=== PATIENT | male | born 1950 | race Caucasian/White ===

== ENCOUNTER 2021-02-21 08:44 | Outpatient (CLI) | payer MEDICARE, OTHER ==
[2021-02-21 09:05] LABS: BASOPHILS # (AUTO) 0.1 10^3/uL (0.0-0.1); BASOPHILS % (AUTO) 1.1 %; EOSINOPHILS # (AUTO) 0.3 10^3/uL (0.0-0.7); EOSINOPHILS % (AUTO) 4.9 %; HGB - HEMOGLOBIN 13.9 g/dL (14.0-18.0); LYMPHOCYTES # (AUTO) 2.4 10^3/uL (1.5-3.5); LYMPHOCYTES % (AUTO) 37.5 %; MEAN CORPUSCULAR HEMOGLOBIN 31.2 pg (27.0-31.0); MEAN CORPUSCULAR HGB CONC 33.9 g/dL (32.0-36.0); MEAN CORPUSCULAR VOLUME 92.1 fL (80.0-94.0); MEAN PLATELET VOLUME 8.8 fL (7.4-11.4); MONOCYTES # (AUTO) 0.7 10^3/uL (0.0-1.0); MONOCYTES % (AUTO) 10.3 %; NEUTROPHILS # (AUTO) 2.9 10^3/uL (1.5-6.6); PLT - PLATELET COUNT 190 10^3/uL (130-450); RED BLOOD COUNT 4.45 10^6/uL (4.70-6.10); RED CELL DISTRIBUTION WIDTH 12.6 % (12.0-15.0); WHITE BLOOD COUNT 6.3 x10^3/uL (4.8-10.8)
[2021-02-21 09:23] LABS: ALBUMIN 3.9 g/dL (3.2-5.5); ALBUMIN/GLOBULIN RATIO 1.4 (1.0-2.2); ALKALINE PHOSPHATASE 100 IU/L (42-121); ALT ALANINE AMINOTRANSFERASE 20 IU/L (10-60); AST ASPARTATE AMINOTRANSFERASE 24 IU/L (10-42); BILIRUBIN,TOTAL 1.4 mg/dL (0.2-1.0); BUN - BLOOD UREA NITROGEN 17 mg/dL (6-20); CALCIUM 9.1 mg/dL (8.5-10.3); CARBON DIOXIDE - CO2 29 mmol/L (21-32); CHLORIDE 103 mmol/L (101-111); CHOL/HDL RATIO 3.3 (<5.0); CHOLESTEROL 121 mg/dL; GFR - MDRD 73 (>89); GLUCOSE 101 mg/dL (70-100); HDL CHOLESTEROL 37 mg/dL; LDL CHOLESTEROL,CALCULATED 68 mg/dL; LDL/HDL RATIO 1.8 (<3.6); POTASSIUM 4.1 mmol/L (3.5-5.0); SODIUM 139 mmol/L (135-145); TOTAL PROTEIN 6.6 g/dL (6.7-8.2); TRIGLYCERIDES 78 mg/dL; VLDL CHOLESTEROL 16 mg/dL
== END 2021-02-21 08:45 | disposition home or self-care (01) ==
LOC: LAB 08:44
PROVIDERS: ATTEND Internal Medicine
DX: I10 Essential (primary) hypertension (principal); E78.5 Hyperlipidemia, unspecified; Z12.5 Encounter for screening for malignant neoplasm of prostate
CPT/HCPCS: 36415; 80053; 80061; 83721; 84153; 85025

== ENCOUNTER 2021-02-26 11:50 | Outpatient (CLI) | payer MEDICARE ==
--- NOTE | 2021-02-26 12:54 | XRAY Report ---
PROCEDURE: Cervical Spine Complete INDICATIONS: LUMBAGO,CERVICALGIA TECHNIQUE: 5 view(s) of the cervical spine were acquired. COMPARISON: None. FINDINGS: Bones: No fractures or dislocations to the C7-T1 level. Straightening of normal cervical lordosis is seen. Degenerative endplate changes and bilateral facet hypertrophic changes are noted throughout ce rvical spine. Minimal anterolisthesis of C3 on C4 and C5 on C6 is seen. The lateral masses of C1 appe ar intact on the odontoid view. No suspicious bony lesions. Soft tissues: No prevertebral soft tissue swelling. Lateral flexion and extension: There is decreased range of motion with preserved cervical spine align ment. IMPRESSION: Minimal anterolisthesis at C3-4 and C5-6 levels. No acute compression fracture. Degenera tive disc disease throughout cervical spine. Decreased range of motion on lateral flexion and extensi on views with preserved cervical spine alignment. Reviewed by: Grady Robertson MD on 02/26/2021 12:53 PM PDT Approved by: Grady Robertson MD on 02/26/2021 12:53 PM PDT Station ID: [id number]
--- NOTE | 2021-02-26 12:58 | XRAY Report ---
PROCEDURE: Lumbar Spine 2 View INDICATIONS: LUMBAGO,CERVICALGIA TECHNIQUE: 4 views of the lumbar spine were acquired. COMPARISON: None. FINDINGS: Bones: 5 [id number]-[id number] vertebrae are present. There is prior posterior fusion of spinous processes at L3-L5 levels. No gross hardware loosening or failure. Grade 1 anterolisthesis of L4 on L5 is seen measures 6 mm in distance. Degenerative endplate changes and bilateral facet arthrosis throughout lum bar spine is seen. No acute vertebral body compression fractures. No suspicious bony lesions. Soft tissues: Overlying bowel gas pattern is normal. No suspicious soft tissue calcifications. Lateral flexion and extension: There is decreased range of motion. Increased anterolisthesis at L4-5 level is noted on lateral flexion view concerning for instability. IMPRESSION: 1. Degenerative disc disease and bilateral facet arthrosis throughout lumbar spine. No acute compress ion fracture. Prior fusion of spinous processes at L3-4 and L4-5 levels. 2. Grade 1 anterolisthesis of L4 on L5 measures 6 mm in distance and appears to increase on lateral f lexion view concerning for instability. Decreased range of motion. Reviewed by: Grady Robertson MD on 02/26/2021 12:57 PM PDT Approved by: Grady Robertson MD on 02/26/2021 12:57 PM PDT Station ID: [id number]
== END 2021-02-26 11:51 | disposition home or self-care (01) ==
LOC: DI 11:50
PROVIDERS: ATTEND Anesthesiology Pain Medicine
DX: M43.12 Spondylolisthesis, cervical region (principal); M50.30 Other cervical disc degeneration, unspecified cervical region; M43.16 Spondylolisthesis, lumbar region; M51.37 Other intervertebral disc degeneration, lumbosacral region; M47.816 Spondylosis without myelopathy or radiculopathy, lumbar region

== ENCOUNTER 2021-08-29 12:30 | Outpatient (CLI) | payer OTHER ==
[2021-08-29 15:20] LABS: BASOPHILS # (AUTO) 0.1 10^3/uL (0.0-0.1); BASOPHILS % (AUTO) 0.8 %; EOSINOPHILS # (AUTO) 0.1 10^3/uL (0.0-0.7); EOSINOPHILS % (AUTO) 0.7 %; HCT - HEMATOCRIT 46.4 % (42.0-52.0); HGB - HEMOGLOBIN 15.8 g/dL (14.0-18.0); LYMPHOCYTES # (AUTO) 2.8 10^3/uL (1.5-3.5); LYMPHOCYTES % (AUTO) 25.6 %; MEAN CORPUSCULAR HEMOGLOBIN 31.3 pg (27.0-31.0); MEAN CORPUSCULAR HGB CONC 34.1 g/dL (32.0-36.0); MEAN CORPUSCULAR VOLUME 92.1 fL (80.0-94.0); MEAN PLATELET VOLUME 9.9 fL (7.4-11.4); MONOCYTES # (AUTO) 0.8 10^3/uL (0.0-1.0); MONOCYTES % (AUTO) 7.3 %; PLT - PLATELET COUNT 252 10^3/uL (130-450); RED BLOOD COUNT 5.04 10^6/uL (4.70-6.10); RED CELL DISTRIBUTION WIDTH 12.8 % (12.0-15.0); WHITE BLOOD COUNT 10.8 x10^3/uL (4.8-10.8)
[2021-08-29 15:39] LABS: ALBUMIN 4.2 g/dL (3.2-5.5); ALBUMIN/GLOBULIN RATIO 1.4 (1.0-2.2); ALKALINE PHOSPHATASE 105 IU/L (42-121); ALT ALANINE AMINOTRANSFERASE 24 IU/L (10-60); AST ASPARTATE AMINOTRANSFERASE 23 IU/L (10-42); BILIRUBIN,TOTAL 1.3 mg/dL (0.2-1.0); BUN - BLOOD UREA NITROGEN 17 mg/dL (6-20); CALCIUM 9.3 mg/dL (8.5-10.3); CARBON DIOXIDE - CO2 31 mmol/L (21-32); CHLORIDE 100 mmol/L (101-111); CHOLESTEROL 125 mg/dL; GFR - MDRD 73 (>89); GLUCOSE 105 mg/dL (70-100); HDL CHOLESTEROL 41 mg/dL; LDL CHOLESTEROL,CALCULATED 64 mg/dL; LDL/HDL RATIO 1.6 (<3.6); POTASSIUM 3.7 mmol/L (3.5-5.0); SODIUM 140 mmol/L (135-145); TOTAL PROTEIN 7.2 g/dL (6.7-8.2); TRIGLYCERIDES 100 mg/dL; VLDL CHOLESTEROL 20 mg/dL
== END 2021-08-29 12:31 | disposition home or self-care (01) ==
LOC: LAB.S 12:30
PROVIDERS: ATTEND Internal Medicine
DX: I10 Essential (primary) hypertension (principal); E78.5 Hyperlipidemia, unspecified
CPT/HCPCS: 36415; 80053; 80061; 83721; 85025

== ENCOUNTER 2021-10-28 08:00 | Outpatient (CLI) | payer OTHER ==
--- NOTE | 2021-10-28 13:24 | XRAY Report ---
PROCEDURE: Chest 2 View X-Ray INDICATIONS: PRODUCTIVE COUGH TECHNIQUE: 2 view(s) of the chest. COMPARISON: None. FINDINGS: Surgical changes and devices: Cholecystectomy clips.. Lungs and pleura: No pleural effusions or pneumothorax. Smooth, 8mm nodule in the left upper lobe, m idlung. Lungs are otherwise clear. Mediastinum: Mediastinal contours are normal. Heart size is normal. Bones and chest wall: No suspicious bony abnormalities. Soft tissues appear unremarkable. IMPRESSION: 1. No acute process. 2. Smooth left midlung nodule, likely granuloma. Reviewed by: Ángela Porter MD on 10/28/2021 1:22 PM PDT Approved by: Ángela Porter MD on 10/28/2021 1:22 PM PDT Station ID: [id number]
== END 2021-10-28 23:59 | disposition home or self-care (01) ==
LOC: DI.S 08:00
PROVIDERS: ATTEND Physician Assistant
DX: R91.1 Solitary pulmonary nodule (principal); R05.8 Other specified cough; Z20.822 Contact with and (suspected) exposure to COVID-19

== ENCOUNTER 2021-11-04 11:30 | Outpatient (CLI) | payer OTHER ==
[2021-11-06 15:16] LABS: NIL 0.02 IU/mL
== END 2021-11-04 11:31 | disposition home or self-care (01) ==
LOC: LAB.S 11:30
PROVIDERS: ATTEND Internal Medicine
DX: R05.3 Chronic cough (principal)
CPT/HCPCS: 36415; 86480

== ENCOUNTER 2023-01-23 08:00 | Outpatient (CLI) | payer MEDICARE ==
--- NOTE | 2023-01-23 11:11 | XRAY Report ---
PROCEDURE: Chest 2 View X-Ray INDICATIONS: WHEEZING TECHNIQUE: 2 views of the chest were acquired. COMPARISON: 10/28/2021 FINDINGS: Surgical changes and devices: None. Lungs and pleura: No pleural effusions or pneumothorax. Lungs are clear. Mediastinum: Mediastinal contours appear normal. Heart size is normal. Bones and chest wall: No suspicious bony lesions. Overlying soft tissues appear unremarkable. Jose ash epidural stimulator noted. Midthoracic vertebral compression fracture IMPRESSION: No acute cardiopulmonary findings Reviewed by: Bear Noriega MD on 01/23/2023 10:10 AM MAURICIO Approved by: Bear Noriega MD on 01/23/2023 10:10 AM MAURICIO Station ID: [id number]
== END 2023-01-23 23:59 | disposition home or self-care (01) ==
LOC: DI.S 08:00
PROVIDERS: ATTEND Physician Assistant Medical
DX: R05.9 Cough, unspecified (principal)

== ENCOUNTER 2023-06-01 09:45 | Outpatient (CLI) | payer MEDICARE ==
[2023-06-01 10:06] LABS: BASOPHILS # (AUTO) 0.1 10^3/uL (0.0-0.1); BASOPHILS % (AUTO) 0.8 %; EOSINOPHILS # (AUTO) 0.4 10^3/uL (0.0-0.7); EOSINOPHILS % (AUTO) 5.1 %; HCT - HEMATOCRIT 41.6 % (42.0-52.0); HGB - HEMOGLOBIN 14.1 g/dL (14.0-18.0); LYMPHOCYTES # (AUTO) 2.9 10^3/uL (1.5-3.5); LYMPHOCYTES % (AUTO) 37.7 %; MEAN CORPUSCULAR HEMOGLOBIN 30.6 pg (27.0-31.0); MEAN CORPUSCULAR HGB CONC 33.9 g/dL (32.0-36.0); MEAN CORPUSCULAR VOLUME 90.2 fL (80.0-94.0); MEAN PLATELET VOLUME 8.6 fL (7.4-11.4); MONOCYTES # (AUTO) 0.7 10^3/uL (0.0-1.0); MONOCYTES % (AUTO) 9.5 %; NEUTROPHILS # (AUTO) 3.6 10^3/uL (1.5-6.6); NEUTROPHILS % (AUTO) 46.5 %; PLT - PLATELET COUNT 197 10^3/uL (130-450); RED BLOOD COUNT 4.61 10^6/uL (4.70-6.10); WHITE BLOOD COUNT 7.7 x10^3/uL (4.8-10.8)
[2023-06-01 10:23] LABS: ALBUMIN 4.1 g/dL (3.2-5.5); ALKALINE PHOSPHATASE 101 IU/L (42-121); ALT ALANINE AMINOTRANSFERASE 16 IU/L (10-60); AST ASPARTATE AMINOTRANSFERASE 17 IU/L (10-42); BILIRUBIN,TOTAL 1.3 mg/dL (0.2-1.0); BUN - BLOOD UREA NITROGEN 20 mg/dL (6-20); CALCIUM 9.5 mg/dL (8.5-10.3); CARBON DIOXIDE - CO2 33 mmol/L (21-32); CHLORIDE 105 mmol/L (101-111); CHOL/HDL RATIO 3.6 (<5.0); CHOLESTEROL 103 mg/dL; CREATININE 1.1 mg/dL (0.6-1.3); GFR - MDRD 65 (>89); GLUCOSE 103 mg/dL (74-104); HDL CHOLESTEROL 29 mg/dL; LDL CHOLESTEROL,CALCULATED 30 mg/dL; POTASSIUM 3.8 mmol/L (3.5-4.5); SODIUM 141 mmol/L (135-145); TOTAL PROTEIN 6.2 g/dL (6.4-8.9); TRIGLYCERIDES 218 mg/dL (48-352); VLDL CHOLESTEROL 44 mg/dL
== END 2023-06-01 09:46 | disposition home or self-care (01) ==
LOC: LAB 09:45
PROVIDERS: ATTEND Registered Nurse
DX: I10 Essential (primary) hypertension (principal); Z79.899 Other long term (current) drug therapy; E78.5 Hyperlipidemia, unspecified
CPT/HCPCS: 36415; 80053; 80061; 83721; 85025

== ENCOUNTER 2023-06-14 08:00 | Outpatient (CLI) | payer MEDICARE | END 2023-06-14 23:59 | disposition home or self-care (01) | LOC: LAB.S 08:00 | PROVIDERS: ATTEND Physician Assistant | DX: L03.115 Cellulitis of right lower limb (principal) | CPT/HCPCS: 87070; 87181; 87205 ==

== ENCOUNTER 2024-01-14 09:16 | Outpatient (CLI) | payer MEDICARE | END 2024-01-14 23:59 | disposition critical access hospital (66) | LOC: EMS 09:16 | DX: R10.12 Left upper quadrant pain (principal); R10.11 Right upper quadrant pain; K59.00 Constipation, unspecified; R23.1 Pallor; R61 Generalized hyperhidrosis; R11.0 Nausea; Z79.891 Long term (current) use of opiate analgesic | CPT/HCPCS: A0425; A0429 ==

== ENCOUNTER 2024-01-14 09:34 | Emergency (ER) | payer MEDICARE ==
[2024-01-14 10:15] LABS: BASOPHILS % (AUTO) 0.1 %; EOSINOPHILS % (AUTO) 38.7 %; HCT - HEMATOCRIT 45.2 % (42.0-52.0); HGB - HEMOGLOBIN 15.1 g/dL (14.0-18.0); LYMPHOCYTES % (AUTO) 6.1 %; MEAN CORPUSCULAR HEMOGLOBIN 30.5 pg (27.0-31.0); MEAN CORPUSCULAR HGB CONC 33.4 g/dL (32.0-36.0); MEAN CORPUSCULAR VOLUME 91.3 fL (80.0-94.0); MEAN PLATELET VOLUME 9.6 fL (7.4-11.4); MONOCYTES % (AUTO) 6.6 %; NEUTROPHILS % (AUTO) 47.7 %; PLT - PLATELET COUNT 229 10^3/uL (130-450); RED BLOOD COUNT 4.95 10^6/uL (4.70-6.10); RED CELL DISTRIBUTION WIDTH 12.8 % (12.0-15.0); WHITE BLOOD COUNT 22.4 x10^3/uL (4.8-10.8)
[2024-01-14 10:28] LABS: ABNORMAL LYMPHS % (MANUAL) 0 %; BAND NEUTROPHILS % (MANUAL) 0 %
[2024-01-14 10:30] LABS: ALBUMIN 4.4 g/dL (3.2-5.5); BILIRUBIN,TOTAL 1.5 mg/dL (0.2-1.0); CALCIUM 9.7 mg/dL (8.5-10.3); POTASSIUM 3.7 mmol/L (3.5-4.5); TOTAL PROTEIN 6.6 g/dL (6.4-8.9)
[2024-01-14 10:40] LABS: LYMPHOCYTES % (MANUAL) 9 %; MONOCYTES # (MANUAL) 1.6 10^3/uL (0.0-1.0); NEUTROPHILS # (MANUAL) 18.8 10^3/uL (1.5-6.6)
[2024-01-14 10:41] LABS: DIFFERENTIAL COMMENT MANUAL DIFFERENTIAL; PLATELET ESTIMATE, MANUAL NORMAL (130-450,000) (NORMAL); PLATELET MORPHOLOGY NORMAL APPEARANCE (NORMAL); RBC MORPHOLOGY (MULTIPLE) NORMAL APPEARANCE (NORMAL); WBC MORPHOLOGY (MULTIPLE) NORMAL APPEARANCE (NORMAL)
--- NOTE | 2024-01-14 11:28 | ED Physician Documentation ---
PD HPI ABD PAIN - Stated complaint Stated Complaint: ABD PX - Chief complaint Chief Complaint: Abd Pain - History obtained from History obtained from: Patient - History of Present Illness Timing - onset: Last night (onset during the night of abd pain cramping with nausea and repetitive vomiting. Feels similar to prior SBO episodes. Has had it multiple times and has resolved most often with fluids and meds.) Timing - details: Abrupt onset, Still present Quality: Cramping, Aching, Pain Location: All over / everywhere, Periumbilical Radiation: No: Chest, Lower back Improved by: Vomiting Associated symptoms: Nausea, Vomiting. No: Fever, Diarrhea, Constipation, Dysuria Similar symptoms before: Diagnosis (SBO) Review of Systems Constitutional: denies: Fever, Chills Nose: denies: Rhinorrhea / runny nose, Congestion, Reviewed and negative Throat: denies: Sore throat Cardiac: denies: Chest pain / pressure, Palpitations Respiratory: denies: Dyspnea, Cough PD PAST MEDICAL HISTORY - Past Medical History Past Medical History: Yes Cardiovascular: Hypertension Musculoskeletal: Osteoarthritis, Chronic back pain - Past Surgical History Past Surgical History: Yes General: Cholecystectomy Ortho: Knee replacement HEENT: Cataracts, Tonsil/Adenoidectomy - Present Medications Home Medications: Ambulatory Orders Medication Instructions Recorded Confirmed Amlodipine Besylate [Norvasc] 10 mg PO DAILY 01/14/24 01/14/24 Atorvastatin Calcium 40 mg PO DAILY 01/14/24 01/14/24 Metoprolol Succinate 100 mg PO DAILY 01/14/24 01/14/24 Morphine Sulfate [Morphine Sulfate 30 mg PO BID 01/14/24 01/14/24 ER] oxyCODONE/ACET 5/325 Prepack 4 1 tab PO TID 01/14/24 01/14/24 [PERCOCET 5 MG/325 MG Prepack 4] - Allergies Allergies/Adverse Reactions: Allergies Allergy/AdvReac Type Severity Reaction Status Date / Time clindamycin Allergy Hives Verified 01/14/24 09:48 dextrose 5 % in water Allergy Hives Verified 01/14/24 09:48 [From Zyvox] linezolid [From Zyvox] Allergy Hives Verified 01/14/24 09:48 - Social History Does the pt smoke?: No Smoking Status: Never smoker Does the pt drink ETOH?: No Does the pt have substance abuse?: No - Immunizations Immunizations are current?: Yes PD ED PE NORMAL - Vitals Vital signs reviewed: Yes - General General: Alert and oriented X 3, Well developed/nourished, Other (appears in pain mid abdomen, with dsitension and increased bowel sounds. No palpable hernias. ) - HEENT HEENT: Atraumatic, Pharynx benign - Neck Neck: Supple, no meningeal sign, No adenopathy - Cardiac Cardiac: RRR, No murmur - Respiratory Respiratory: No respiratory distress, Clear bilaterally - Abdomen Abdomen: Soft, Non tender Results - Vitals Vitals: Vital Signs - 24 hr 01/14/24 01/14/24 01/14/24 09:40 10:17 13:08 Temperature 36.1 C L Heart Rate 77 78 70 Respiratory 20 17 18 Rate Blood Pressure 173/93 H 166/88 H 136/67 H O2 Saturation 97 98 95 Oxygen O2 Source Room air - Labs Labs: Laboratory Tests 01/14/24 01/14/24 01/14/24 10:08 10:08 12:50 WBC 22.4 H RBC 4.95 Hgb 15.1 Hct 45.2 MCV 91.3 MCH 30.5 MCHC 33.4 RDW 12.8 Plt Count 229 MPV 9.6 Neut # (Auto) Not Reportable Lymph # (Auto) Not Reportable [place] # (Auto) Not Reportable Eos # (Auto) Not Reportable Baso # (Auto) Not Reportable Absolute Nucleated RBC Not Reportable Total Counted 100 Band Neuts % (Manual) 0 Abnorm Lymph % (Manual) 0 Nucleated RBC % Not Reportable Neutrophils # (Manual) 18.8 H Lymphocytes # (Manual) 2.0 Monocytes # (Manual) 1.6 H Eosinophils # (Manual) 0.0 Basophils # (Manual) 0.0 Differential Comment MANUAL DIFFERENTIAL WBC Morphology NORMAL APPEARANCE Platelet Estimate NORMAL (130-450,000) Platelet Morphology NORMAL APPEARANCE RBC Morph Micro Appear NORMAL APPEARANCE Sodium 138 Potassium 3.7 Chloride 100 L Carbon Dioxide 26 Anion Gap 12.0 BUN 26 H Creatinine 1.0 Estimated GFR (MDRD) 73 L Glucose 180 H Calcium 9.7 Total Bilirubin 1.5 H AST 27 ALT 19 Alkaline Phosphatase 100 Total Protein 6.6 Albumin 4.4 Globulin 2.2 Albumin/Globulin Ratio 2.0 Lipase 14 Urine Color YELLOW Urine Clarity CLEAR Urine pH 7.0 Ur Specific [place] 1.015 Urine Protein NEGATIVE Urine Glucose (UA) NEGATIVE Urine Ketones NEGATIVE Urine Occult Blood TRACE-INTA Urine Nitrite NEGATIVE Urine Bilirubin NEGATIVE Urine Urobilinogen 0.2 (NORMAL) Ur Leukocyte Esterase NEGATIVE Ur Microscopic Review NOT INDICATED Urine Culture Comments NOT INDICATED - Rads (name of study) abd/pelvic CT Relevant Findings:: Prelim report reviewed, EMP independent interpretation of test (area f distended small blowel and less dilated distally. C/W SBo. diverticula without diverticulitis. ) PD Medical Decision Making - ED course Complexity details: reviewed results, re-evaluated patient (after IV fluids and meds, pt states pain much improved and then he has some flatus, and small stool out. Abd not hurting at all. Apparent resolution of he SBO. nontender on repeat exam. ), considered differential (abrupt pain in abd with distension. H/O SBOs in the past and would seem likely again. IF fluids and antinuaseant with toradol and dilaudid effec tive at easing pain. He then subsequently felt like abd was less tight. ), d/w patient Departure - Departure Disposition: 01 Home, Self Care Clinical Impression: Abdominal pain, Vomiting, SBO (small bowel obstruction) Condition: Stable Record reviewed to determine appropriate education?: Yes Instructions: ED Nausea Vomiting Follow-Up: Amy Rizo ARNP [Primary Care Provider] - Comments: Your CT scan was showing the appearance of a small bowel obstruction. Your symptoms seem to be resolving quite well at this point after some fluids and medicines. You have passed some gas and stool. Sounds likely that the obstruction has surgery resolving itself. Home with small frequent fluids and just liquids only today. Continue with your usual medications otherwise. Return to the ER for recurrent symptoms again. Forms: PCP List Discharge Date/Time: 01/14/24 15:00
[2024-01-14] MEDS: SODIUM CHLORIDE 0.9% 1,000 ML IV STA (11:35)
[2024-01-14] MEDS: ONDANSETRON 4 MG/2 ML VIAL IVP STA (11:36)
[2024-01-14] MEDS: KETOROLAC 15 MG/ML VIAL IVP STA (11:36)
[2024-01-14] MEDS: HYDROmorphone 1 MG/ML CARPUJECT IVP STA (11:36)
[2024-01-14] MEDS ORDERED: iohexoL-300 100 ML VIAL ONE (12:22)
[2024-01-14] MEDS: iohexoL-300 100 ML VIAL IVP ONE (12:42)
--- NOTE | 2024-01-14 13:01 | CT Report ---
PROCEDURE: Abdomen/Pelvis W INDICATIONS: mid abd pain; prior SBOs. CONTRAST: 100 ml omnipaque 300 TECHNIQUE: After the administration of intravenous contrast, a CT scan of the abdomen and pelvis was performed. Images were recorded and evaluated at appropriate window settings. Reformats: coronal and sagittal. F or radiation dose reduction, the following was used: automated exposure control, adjustment of mA and /or kV according to patient size. COMPARISON: None. FINDINGS: Image quality: Diagnostic. Lower chest: Unremarkable. Liver: No solid mass. Gallbladder: Surgically absent. Biliary tree: No intrahepatic or extrahepatic dilation, accounting for age. Spleen: No splenomegaly. Pancreas: No pancreatic ductal dilation. Adrenals: No adrenal nodule. Kidneys and ureters: No hydronephrosis. No renal cystic lesion which requires follow up. No solid mas s. Stomach, bowel and peritoneum: No gastric dilation. No abnormal wall thickening. Mild mesenteric ciro a. Small fluid within the abdomen and pelvis Diverticulosis without evidence of diverticulitis. Eveline l appendix. Lymph nodes: No central or retroperitoneal adenopathy. Postsurgical changes within the anterior abdom en likely from hernia repair. Multiple loops of small bowel are pressed to the anterior peritoneum, l ikely representing adhesions. The small bowel in this area is mildly prominent measuring up to 3.1 cm with air-fluid levels and surrounding inflammation. No definite transition point is seen. Vessels: No infrarenal aortic aneurysm. Atherosclerotic vascular calcifications. Patent portal vein. PELVIS Reproductive organs: Unremarkable. Bladder: No abnormal wall thickening, accounting for underdistention. Pelvic lymph nodes: No pelvic adenopathy by size criteria. Bones: No aggressive osseous abnormality. Spinal cord similar is noted. Degenerative changes of the s pine. Postsurgical changes at L3-L4 and L4-L5. Mild anterolisthesis of L4 on L5. Other: No significant ventral or inguinal hernia. IMPRESSION: 1.Postsurgical changes within the anterior abdomen with multiple loops of small bowel pressed against the anterior peritoneum, likely representing adhesions. Several mildly dilated loops of small bowel in this area with air-fluid levels, measuring up to 3.1 cm with surrounding inflammatory changes. Thi s may represent partial or developing obstruction. No transition point is identified. 2.Mesenteric edema and small volume free fluid within the abdomen and pelvis is likely reactive. 3.Diverticulosis without evidence of acute diverticulitis. Reviewed by: Carter Hensley MD on 01/14/2024 1:00 PM PDT Approved by: Carter Hensley MD on 01/14/2024 1:00 PM PDT Station ID: [id number]
[2024-01-14 13:12] VITALS: BP 136/67; O2SAT 95
[2024-01-14 13:17] LABS: BILIRUBIN,URINE NEGATIVE (NEGATIVE); GLUCOSE, URINE (UA) NEGATIVE (NEGATIVE); KETONES,URINE (UA) NEGATIVE (NEGATIVE); LEUKOCYTE ESTERASE, URINE NEGATIVE (NEGATIVE); NITRITE,URINE NEGATIVE (NEGATIVE); OCCULT BLOOD,URINE TRACE-INTA (NEGATIVE); PROTEIN,URINE NEGATIVE (NEGATIVE); UROBILINOGEN,URINE 0.2 (NORMAL) E.U./dL (NORMAL)
[2024-01-14 13:20] LABS: CLARITY,URINE CLEAR (CLEAR)
== END 2024-01-14 15:00 | disposition home or self-care (01) ==
LOC: EDUNIT# → ED 09:34
DX: K56.609 Unspecified intestinal obstruction, unspecified as to partial versus complete obstruction (principal)
CPT/HCPCS: 36415; 74177; 80053; 81003; 83690; 85025; 96374; 99284; J1170; Q9967; 81001; 87086

== ENCOUNTER 2024-09-28 19:20 | Inpatient (IN) ==
[2024-09-28 21:01] LABS: BASOPHILS # (AUTO) 0.1 10^3/uL (0.0-0.1); BASOPHILS % (AUTO) 0.6 %; EOSINOPHILS # (AUTO) 0.2 10^3/uL (0.0-0.7); EOSINOPHILS % (AUTO) 1.4 %; HCT - HEMATOCRIT 48.6 % (42.0-52.0); HGB - HEMOGLOBIN 16.2 g/dL (14.0-18.0); LYMPHOCYTES # (AUTO) 1.7 10^3/uL (1.5-3.5); LYMPHOCYTES % (AUTO) 11.5 %; MEAN CORPUSCULAR HEMOGLOBIN 30.6 pg (27.0-31.0); MEAN CORPUSCULAR HGB CONC 33.3 g/dL (32.0-36.0); MEAN CORPUSCULAR VOLUME 91.9 fL (80.0-94.0); MEAN PLATELET VOLUME 9.4 fL (7.4-11.4); MONOCYTES # (AUTO) 0.8 10^3/uL (0.0-1.0); MONOCYTES % (AUTO) 5.4 %; NEUTROPHILS % (AUTO) 80.6 %; PLT - PLATELET COUNT 236 10^3/uL (130-450); RED BLOOD COUNT 5.29 10^6/uL (4.70-6.10); RED CELL DISTRIBUTION WIDTH 12.8 % (12.0-15.0); WHITE BLOOD COUNT 14.9 x10^3/uL (4.8-10.8)
[2024-09-28 21:02] LABS: ALBUMIN 4.7 g/dL (3.2-5.5); ALBUMIN/GLOBULIN RATIO 1.8 (1.0-2.2); BILIRUBIN,TOTAL 1.3 mg/dL (0.2-1.0); CALCIUM 10.3 mg/dL (8.5-10.3); POTASSIUM 3.6 mmol/L (3.5-4.5); TOTAL PROTEIN 7.3 g/dL (6.4-8.9)
[2024-09-28 21:59] LABS: BILIRUBIN,URINE NEGATIVE (NEGATIVE); GLUCOSE, URINE (UA) NEGATIVE (NEGATIVE); KETONES,URINE (UA) NEGATIVE (NEGATIVE); LEUKOCYTE ESTERASE, URINE NEGATIVE (NEGATIVE); NITRITE,URINE NEGATIVE (NEGATIVE); OCCULT BLOOD,URINE SMALL (NEGATIVE); PH,URINE 6.5 PH (5.0-7.5); PROTEIN,URINE NEGATIVE (NEGATIVE); UROBILINOGEN,URINE 0.2 (NORMAL) E.U./dL (NORMAL)
[2024-09-28 22:04] LABS: CLARITY,URINE CLEAR (CLEAR)
[2024-09-28 22:16] LABS: BACTERIA,URINE None Seen /HPF (None Seen); RBC,URINE 0-5 /HPF (0-5); SQUAMOUS EPITHELIAL CELL,UR RARE Squamous (<= Few); WBC,URINE 0-3 /HPF (0-3)
[2024-09-28] MEDS ORDERED: iohexoL-300 100 ML VIAL ONE (22:43)
--- NOTE | 2024-09-28 22:43 | ED Physician Documentation ---
PD HPI ABD PAIN Stated complaint Stated Complaint: DIZZY/NAUSEA Chief complaint Chief Complaint: Abd Pain History obtained from History obtained from: Patient History of Present Illness Timing - onset: Today Additional information Additional information: 74M hx of multiple SBO spontaneously resolving has symptoms again today. He has had surgery once previously and this did not go well with a dehisence. [place] Coma Scale Assess Eye opening: Spontaneous Verbal response: Oriented Motor response: Obeys Commands Total score: 15 Review of Systems The patient denies chest pain shortness of breath diarrhea fever or urinary symptoms. Meds/Allgy Home Medications Ambulatory Orders Medication Instructions Recorded Confirmed morphine 30 mg capsule,extended 30 mg PO BID 01/14/24 06/30/24 release pellets oxycodone-acetaminophen 5 mg-325 1 tab PO TID 01/14/24 06/30/24 mg tablet aspirin 325 mg tablet 650 mg PO HS 06/30/24 06/30/24 ianzafip-zod-jlmjt acid 0.4 1 tab PO QDAY 06/30/24 06/30/24 mg-lycopene 300 mcg-lutein 250 mcg tablet (Centrum Silver) omega 7-qcb-ktp-fish oil 60 mg-90 1 cap PO QDAY 06/30/24 06/30/24 mg-500 mg capsule (Fish Oil) polyethylene glycol 3350 17 gram 17 g PO QDAY 06/30/24 06/30/24 oral powder packet (Miralax) simethicone 180 mg capsule 180 mg PO BID PRN 06/30/24 06/30/24 amlodipine 10 mg tablet (Norvasc) 10 mg PO DAILY #100 tabs 07/02/24 07/02/24 atorvastatin 40 mg tablet 40 mg PO DAILY #100 tabs 07/02/24 07/02/24 cyclobenzaprine 5 mg tablet 5 mg PO TID PRN muscle spasm #120 07/02/24 07/02/24 tabs fluticasone propionate 50 1 spray intranasal QDAY #16 grams 07/02/24 07/02/24 mcg/actuation nasal spray,suspension metoprolol succinate 100 mg 100 mg PO DAILY #100 tabs 07/02/24 07/02/24 tablet,extended release 24 hr metoprolol succinate 50 mg 50 mg PO QDAY #100 tabs 07/02/24 07/02/24 tablet,extended release 24 hr triamcinolone acetonide 0.5 % 1 applic topical QDAY #15 grams 07/10/24 topical cream mupirocin 2 % topical ointment 1 applic topical TID PRN Thorn 07/11/24 (Centany) lacerations with infection #22 grams Allergies Allergies Allergy/AdvReac Type Severity Reaction Status Date / Time dextrose 5 % in water (From Allergy Severe Hives Verified 09/28/24 19:59 Zyvox) linezolid (From Zyvox) Allergy Severe Hives Verified 09/28/24 19:59 clindamycin Allergy Hives Verified 09/28/24 19:59 [facility] Medical History Medical History (Updated 09/29/24 @ 07:46 by Prakash Magana MD) Indeterminate pulmonary nodules Surgical History Surgical History (Updated 09/28/24 @ 22:05 by Josi Espinosa RN) S/P cataract surgery Status post total knee replacement, left S/P prostatectomy Urolift Family History Family History (Updated 06/30/24 @ 11:30 by Mary Briscoe LPN) Father High blood pressure Mother Pancreatic cancer Arthritis Suicide Mental disorder Social History Social History (Updated 06/30/24 @ 11:19 by Mary Briscoe LPN) Smoking Status: Never smoker Second hand tobacco smoke exposure: No Do you dip or chew tobacco?: No Do you vape?: No Relationship: Do you feel safe in your home environment?: Yes Suffered physical, verbal, emotional, or financial abuse?: No History of Abuse: No ETOH Use: None Substance Use: denies use POLST Patient has POLST: No Exam Exam uncomfortatble appearing 74M lying supine on a gurney Constitutional normal general appearance HENMT normocephalic Eyes PERRL and EOMs intact bilaterally Respiratory breath sounds equal bilaterally, normal respiratory effort and clear to auscultation bilaterally Cardiovascular normal heart rate noted and no murmur Gastrointestinal abdomen soft to palpation, tender to palpation (moderate) and other (generalized) and abnormal bowel sounds noted (hyperactive bowel sounds) Back/Pelvis spine normal to inspection Extremities normal to inspection 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 Psychiatry mental status grossly normal, oriented x3, thought process normal, cooperative, psychomotor activity normal and memory normal Results Vitals Vitals: Vital Signs - 24 hr 09/28/24 19:55 09/28/24 21:49 09/28/24 22:33 Temperature 36.7 C Temperature Source Temporal Artery Scan Pulse Rate 64 66 Respiratory Rate 15 20 Blood Pressure 181/80 H 143/69 H O2 Saturation 96 96 O2 Source Room air Room air If not protocol: Oxygen Flow, liters/minute Pain Intensity 8 8 09/28/24 23:42 09/29/24 00:01 09/29/24 00:34 Temperature Temperature Source Pulse Rate 72 Respiratory Rate 20 Blood Pressure 161/86 H O2 Saturation 94 O2 Source Room air If not protocol: Oxygen Flow, liters/minute Pain Intensity 8 6 09/29/24 01:01 09/29/24 02:12 09/29/24 02:12 Temperature Temperature Source Pulse Rate Respiratory Rate Blood Pressure O2 Saturation O2 Source If not protocol: Oxygen Flow, liters/minute Pain Intensity 6 5 5 09/29/24 02:21 09/29/24 02:28 09/29/24 03:15 Temperature Temperature Source Pulse Rate 69 71 Respiratory Rate 20 20 Blood Pressure 159/75 H 165/72 H O2 Saturation 93 97 O2 Source Room air Room air If not protocol: Oxygen Flow, liters/minute Pain Intensity 5 09/29/24 03:25 09/29/24 03:30 09/29/24 05:26 Temperature Temperature Source Pulse Rate Respiratory Rate Blood Pressure O2 Saturation O2 Source If not protocol: Oxygen Flow, liters/minute Pain Intensity 6 4 10 09/29/24 06:03 09/29/24 06:20 09/29/24 06:55 Temperature Temperature Source Pulse Rate 73 77 Respiratory Rate 20 20 Blood Pressure 162/74 H 168/70 H O2 Saturation 96 97 O2 Source Room air Nasal cannula If not protocol: Oxygen Flow, liters/minute 2 Pain Intensity 7 Oxygen O2 Source Nasal cannula Labs Labs: Laboratory Tests 09/28/24 09/28/24 20:44 21:45 WBC 14.9 H RBC 5.29 Hgb 16.2 Hct 48.6 MCV 91.9 MCH 30.6 MCHC 33.3 RDW 12.8 Plt Count 236 MPV 9.4 Neut # (Auto) 12.0 H Lymph # (Auto) 1.7 [place] # (Auto) 0.8 Eos # (Auto) 0.2 Baso # (Auto) 0.1 Absolute Nucleated RBC 0.00 Nucleated RBC % 0.0 Sodium 139 Potassium 3.6 Chloride 101 Carbon Dioxide 32 Anion Gap 6.0 BUN 14 Creatinine 1.0 Estimated GFR (MDRD) 73 L Glucose 132 H Calcium 10.3 Total Bilirubin 1.3 H AST 20 ALT 18 Alkaline Phosphatase 107 Total Protein 7.3 Albumin 4.7 Globulin 2.6 Albumin/Globulin Ratio 1.8 Lipase 19 Urine Color LIGHT YELLOW Urine Clarity CLEAR Urine pH 6.5 Ur Specific [place] 1.020 Urine Protein NEGATIVE Urine Glucose (UA) NEGATIVE Urine Ketones NEGATIVE Urine Occult Blood SMALL H Urine Nitrite NEGATIVE Urine Bilirubin NEGATIVE Urine Urobilinogen 0.2 (NORMAL) Ur Leukocyte Esterase NEGATIVE Urine RBC 0-5 Urine WBC 0-3 Ur Squamous Epith Cells RARE Squamous Urine Bacteria None Seen Ur Microscopic Review INDICATED Urine Culture Comments NOT INDICATED Rads (name of study) CT ab/pel : Relevant Findings:: Final report received Interpretation: Impression: Small bowel obstruction involving the jejunal loops. Moderate congestion and edema is seen throughout the jejunal mesentery. Mild hyperemic mucosa is seen in some of the jejunal bowel loops most likely related to mesenteric congestion. Surgical consultation is recommended. Small amount of perisplenic free fluid. PD Medical Decision Making ED course Complexity details: reviewed old records, reviewed results, considered differential and d/w patient Reviewed Lab Results: We reviewed blood count showing an elevated white blood cell count of 14.9 with a normal hemoglobin hematocrit and platelets there is predominance of neutrophils chemistries showed normal electrolytes normal kidney function and normal liver function a urinalysis shows trace occult blood with a specific gravity of 1.020 these laboratory studies with the exception of the elevated white blood Cell count are otherwise nondiagnostic. They do not contribute to any specific diagnosis. ED course: Elvin Gilbert presented to the emergency department with signs and symptoms of small bowel obstruction. He admits to having potentially eaten too much pizza at a pizza making class he had 2 days previously. He has had a number of bowel obstructions previously most of these have resolved without surgery and his last visit to the emergency department resulted in resolution in the ED. Today he continues to have symptoms after and overnight stay in the ED. Dr. Manzano is consutled in the case and asks us for admission to the medical service. There are not currently beds in the hospital and his care is turned over to Dr. Saldaña awaiting a bed to become available. An NG tube is placed, he is placed on maintenance IV fluid and he is receiving pain management. Discharge Plan Discharge Patient Disposition: 66 [facility] DC/Xfer Condition: Stable Clinical Impression: SBO (small bowel obstruction) Prescriptions: No Action triamcinolone acetonide 0.5 % cream 1 applic topical QDAY Qty: 15 3RF Rx Instructions: Apply to lower extremities for up to 2 weeks at a time. mupirocin [Centany] 2 % ointment 1 applic topical TID PRN (Reason: Thorn lacerations with infection) Qty: 22 2RF Rx Instructions: use up to 2 weeks at a time. oxycodone-acetaminophen 1 BOTTLE tablet 1 tab PO TID morphine 30 MG capsule,extend.release pellets 30 mg PO BID polyethylene glycol 3350 [Miralax] 17 gram powder in packet 17 g PO QDAY Centrum Silver 0.4 mg-300 mcg- 250 mcg tablet 1 tab PO QDAY simethicone 180 mg capsule 180 mg PO BID PRN omega 3-srp-clg-fish oil [Fish Oil] 60-90-500 mg capsule 1 cap PO QDAY aspirin 325 mg tablet 650 mg PO HS amlodipine [Norvasc] 10 mg tablet 10 mg PO DAILY Qty: 100 3RF atorvastatin 40 mg tablet 40 mg PO DAILY Qty: 100 3RF cyclobenzaprine 5 mg tablet 5 mg PO TID PRN (Reason: muscle spasm) Qty: 120 1RF fluticasone propionate 50 mcg/actuation spray,suspension 1 spray intranasal QDAY Qty: 16 3RF Rx Instructions: administer into each nostril metoprolol succinate 100 mg tablet extended release 24 hr 100 mg PO DAILY Qty: 100 3RF Rx Instructions: Along with a 50mg tablet metoprolol succinate 50 mg tablet extended release 24 hr 50 mg PO QDAY Qty: 100 3RF Rx Instructions: Along with a 100mg tablet Print Language: Maltese
[2024-09-29] MEDS: HYDROmorphone 1 MG/ML CARPUJECT IVP STA ×4 (00:01→05:26)
[2024-09-29] MEDS: SODIUM CHLORIDE 0.9% 1,000 ML IV STA ×2 (00:01→07:54)
[2024-09-29] MEDS: ONDANSETRON 4 MG/2 ML VIAL IVP STA ×2 (00:02→05:30)
[2024-09-29] MEDS: iohexoL-300 100 ML VIAL IVP ONE (00:21)
--- NOTE | 2024-09-29 00:39 | CT Report ---
PROCEDURE: CT Abdomen/Pelvis W INDICATIONS: pain consistent with obstruction CONTRAST: 100cc [id number] TECHNIQUE: After the administration of intravenous contrast, a CT scan of the abdomen and pelvis was performed. Images were recorded and evaluated at appropriate window settings. Reformats: coronal and sagittal. F or radiation dose reduction, the following was used: automated exposure control, adjustment of mA and /or kV according to patient size. COMPARISON: None. FINDINGS: Image quality: Diagnostic Lower chest: Basal atelectasis. Normal heart size. Liver: Unremarkable Gallbladder and biliary system: Cholecystectomy clips, nondilated Pancreas: No ductal dilation. Mild to moderate parenchymal atrophy. Spleen: Small amount of perisplenic fluid. Overall nonenlarged spleen Adrenals: No discrete nodules Kidneys: No solid mass or hydronephrosis. Subcentimeter lesions are too small characterize, usually c ysts Vessels and lymph nodes: The main portal vein is patent. No abdominal aortic aneurysm. Atheroscleroti c calcifications are present. Bowel and peritoneum: Trace hiatal hernia. Moderately distended loops of proximal jejunum, with a tra nsition point in the left upper quadrant. Colonic diverticula are seen. The colon is relatively underdistended. Normal diameter appendix. Moderate congestion and edema is seen throughout the jejunal mesentery. There are a few loops of jeju num in the left mid abdomen with hyperemic mucosa (for example image 10/101). Body wall: Postsurgical changes. Adherent loops of small bowel again seen near the surgical clips. Th neetu loops of bowel are nondilated Pelvis: Possible varicoceles and small hydroceles. Bladder is unremarkable. Bones: Nonacute appearing bone fragment adjacent to the left posterior ischium. Lumbar postsurgical c hanges in partially seen intrathecal device. IMPRESSION: Small bowel obstruction involving the jejunal loops. Moderate congestion and edema is seen throughou t the jejunal mesentery. Mildly hyperemic mucosa is seen in some of the jejunal bowel loops, likely r elated to the mesenteric congestion. Surgical consultation is recommended. Small amount of perisplenic free fluid. Other findings above. Reviewed by: Adama Granados MD on 09/29/2024 12:38 AM PST Approved by: Adama Granados MD on 09/29/2024 12:38 AM PST Station ID: [id number]
[2024-09-29] MEDS: MORPHINE 10 MG/ML VIAL IVP STA (07:54)
--- NOTE | 2024-09-29 10:53 | XRAY Report ---
PROCEDURE: XR Chest for Line Placement INDICATIONS: check for line placement TECHNIQUE: One view of the chest was acquired. COMPARISON: 01/23/2023. FINDINGS: Surgical changes and devices: Enteric tube with tip and side-port projecting below the diaphragm. Sp inal cord stimulator in place. Lungs and pleura: No pleural effusions or pneumothorax. Density projecting over the left mid/lower lung field, likely representing a granuloma and stable compared to prior. No consolidation. Mediastinum: Mediastinal contours appear normal. Heart size is normal. Bones and chest wall: No suspicious bony lesions. Overlying soft tissues appear unremarkable. IMPRESSION: Enteric tube with tip and side-port projecting below the diaphragm. Reviewed by: Carter Hensley MD on 09/29/2024 10:52 AM PST Approved by: Carter Hensley MD on 09/29/2024 10:52 AM PST Station ID: [id number]
[2024-09-29] MEDS: SODIUM CHLORIDE 0.9% 1,000 ML IV SCH (11:26)
--- NOTE | 2024-09-29 12:02 | HISTORY & PHYSICAL EXAMINATION ---
Chief Complaint Chief Complaint Chief Complaint: Abdominal pain History of Present Illness Admitted From Admitted From:: Home with History Obtained From Exam Limitations: None History of Present Illness HPI Comment/Other: 74-year-old male with history of multiple abdominal surgeries including a open exploratory abdominal surgery in 2012 which dehisced and became infected with MRSA, also history of hypertension. He presents with abdominal pain for the past few days as well as nausea and now inability to pass gas. He has history of chronic back pain, and is on significant doses of opiates. In the ER, CT abdomen was performed which showed small bowel obstruction involving the jejunal loops with moderate congestion and edema. General surgery was contacted by ER provider, who recommended admit to medicine and NG tube and that he would follow Meds/Allgy Home Medications Ambulatory Orders Medication Instructions Recorded Confirmed morphine 30 mg capsule,extended 30 mg PO BID 01/14/24 06/30/24 release pellets oxycodone-acetaminophen 5 mg-325 1 tab PO TID 01/14/24 06/30/24 mg tablet aspirin 325 mg tablet 650 mg PO HS 06/30/24 06/30/24 drqlihfm-egp-qgulu acid 0.4 1 tab PO QDAY 06/30/24 06/30/24 mg-lycopene 300 mcg-lutein 250 mcg tablet (Centrum Silver) omega 8-gnv-gnk-fish oil 60 mg-90 1 cap PO QDAY 06/30/24 06/30/24 mg-500 mg capsule (Fish Oil) polyethylene glycol 3350 17 gram 17 g PO QDAY 06/30/24 06/30/24 oral powder packet (Miralax) simethicone 180 mg capsule 180 mg PO BID PRN 06/30/24 06/30/24 amlodipine 10 mg tablet (Norvasc) 10 mg PO DAILY #100 tabs 07/02/24 07/02/24 atorvastatin 40 mg tablet 40 mg PO DAILY #100 tabs 07/02/24 07/02/24 cyclobenzaprine 5 mg tablet 5 mg PO TID PRN muscle spasm #120 07/02/24 07/02/24 tabs fluticasone propionate 50 1 spray intranasal QDAY #16 grams 07/02/24 07/02/24 mcg/actuation nasal spray,suspension metoprolol succinate 100 mg 100 mg PO DAILY #100 tabs 11/17/24 11/17/24 tablet,extended release 24 hr metoprolol succinate 50 mg 50 mg PO QDAY #100 tabs 07/02/24 07/02/24 tablet,extended release 24 hr triamcinolone acetonide 0.5 % 1 applic topical QDAY #15 grams 07/10/24 topical cream mupirocin 2 % topical ointment 1 applic topical TID PRN Thorn 07/11/24 (Centany) lacerations with infection #22 grams Allergies Allergies Allergy/AdvReac Type Severity Reaction Status Date / Time dextrose 5 % in water (From Allergy Severe Hives Verified 09/28/24 19:59 Zyvox) linezolid (From Zyvox) Allergy Severe Hives Verified 09/28/24 19:59 clindamycin Allergy Hives Verified 09/28/24 19:59 [facility] Medical History Medical History (Updated 09/29/24 @ 07:46 by Prakash Magana MD) Indeterminate pulmonary nodules Surgical History Surgical History (Updated 09/28/24 @ 22:05 by Josi Espinosa RN) S/P cataract surgery Status post total knee replacement, left S/P prostatectomy Urolift Family History Family History (Updated 06/30/24 @ 11:30 by Mary Briscoe LPN) Father High blood pressure Mother Pancreatic cancer Arthritis Suicide Mental disorder Social History Social History (Updated 06/30/24 @ 11:19 by Mary Briscoe LPN) Smoking Status: Never smoker Second hand tobacco smoke exposure: No Do you dip or chew tobacco?: No Do you vape?: No Relationship: Level: Independent Do you feel safe in your home environment?: Yes Suffered physical, verbal, emotional, or financial abuse?: No History of Abuse: No ETOH Use: None Substance Use: denies use POLST Patient has POLST: No Review of Systems Status of ROS: 10 or more systems reviewed and unremarkable except as noted in history and below Constitutional Denies: Fever or Chills Cardiovascular Denies: Irregular heart rate, chest pain, palpitations or shortness of breath with exertion Respiratory Denies: Shortness of breath Gastrointestinal Reports: Abdominal pain, Nausea and Diarrhea; Denies: Vomiting Genitourinary Denies: Painful urination Musculoskeletal Reports: Back pain (Chronic) Exam Constitutional normal general appearance and no apparent distress HENMT normocephalic and head/scalp atraumatic Eyes PERRL Neck/C-Spine visual inspection normal Lymph no lymphadenopathy noted Chest inspection of chest normal Respiratory breath sounds equal bilaterally Cardiovascular normal heart rate noted and regular rhythm noted Gastrointestinal abdomen normal to inspection, abdomen soft to palpation and tender to palpation (moderate) Extremities normal to inspection Neurology GCS 15 Psychiatry oriented x3 Skin skin color normal Conclusion/Plan Problem List (1) SBO (small bowel obstruction): Plan: General surgery was consulted by ER provider, they will follow NG tube to low intermittent suction Sips/chips (2) Unspecified essential hypertension: Plan: I am holding his antihypertensives for now given his small bowel obstruction. I will discuss with surgery regarding restarting oral meds as his NG tube will have to be clamped for an hour after administration of each medication. I am adding hydralazine 10 mg IV as needed for systolic blood pressure greater than 160. I am also adding enalaprilat 1.25 mg IV push every 6 hours scheduled (3) Encounter for long-term current use of medication: Plan: Patient is on very high doses of multiple narcotic pain medications. As discussed above, I am holding all p.o. medication. Ordered Dilaudid 0.5 mg IV every 4 hours as needed (4) Hyperlipidemia: Plan: I will restart his atorvastatin after discussion with general surgery Qualifiers: Hyperlipidemia type: mixed hyperlipidemia Qualified Code(s): E78.2 - Mixed hyperlipidemia Plan Full code His is his surrogate decision maker and DURABLE POWER OF BAKED AND GRAPHITE INSPECTOR for healthcare POLST provided Lab Results Lab results reviewed: Yes 09/28/24 20:44 09/28/24 20:44
[2024-09-29] MEDS: HYDROmorphone 0.5 MG/0.5 ML SYRINGE IVP PRN (12:27)
[2024-09-29] MEDS: ENALAPRILAT 1.25 MG/ML VIAL IVP SCH (12:27)
--- NOTE | 2024-09-29 13:52 | ED Physician Documentation ---
ED Addendum Addendum Addendum: 74-year-old male with a small bowel obstruction awaiting bed availability for inpatient hospitalization. A bed became available. Discussed the case with the hospitalist who will admit the patient. NG tube was placed. Discharge Plan Discharge Patient Disposition: [facility] DC/Xfer Condition: Stable Clinical Impression: SBO (small bowel obstruction) Interventions: ED Admission Assessment Last Done: 09/29/24 11:21
[2024-09-29] MEDS: SODIUM CHLORIDE FLUSH 0.9% 10 ML SYRINGE IVP SCH (15:27)
--- NOTE | 2024-09-29 15:29 | CONSULTATION NOTE ---
Chief Complaint Chief Complaint Chief Complaint: admitted with nausea and vomiting History of Present Illness Admitted From Admitted From:: ed History Obtained From Records Reviewed: yes History obtained from: pt Exam Limitations: none History of Present Illness HPI Comment/Other: admitted with nausea and vomiting, hx prior abdominal surgery and on high dose chronic narcotics Meds/Allgy Home Medications Ambulatory Orders Medication Instructions Recorded Confirmed morphine 30 mg capsule,extended 30 mg PO BID 01/14/24 06/30/24 release pellets oxycodone-acetaminophen 5 mg-325 1 tab PO TID 01/14/24 06/30/24 mg tablet aspirin 325 mg tablet 650 mg PO HS 06/30/24 06/30/24 riprvsdy-tio-umlud acid 0.4 1 tab PO QDAY 06/30/24 06/30/24 mg-lycopene 300 mcg-lutein 250 mcg tablet (Centrum Silver) omega 6-gha-eeu-fish oil 60 mg-90 1 cap PO QDAY 06/30/24 06/30/24 mg-500 mg capsule (Fish Oil) polyethylene glycol 3350 17 gram 17 g PO QDAY 06/30/24 06/30/24 oral powder packet (Miralax) simethicone 180 mg capsule 180 mg PO BID PRN 06/30/24 06/30/24 amlodipine 10 mg tablet (Norvasc) 10 mg PO DAILY #100 tabs 07/02/24 07/02/24 atorvastatin 40 mg tablet 40 mg PO DAILY #100 tabs 07/02/24 07/02/24 cyclobenzaprine 5 mg tablet 5 mg PO TID PRN muscle spasm #120 07/02/24 07/02/24 tabs fluticasone propionate 50 1 spray intranasal QDAY #16 grams 07/02/24 07/02/24 mcg/actuation nasal spray,suspension metoprolol succinate 100 mg 100 mg PO DAILY #100 tabs 07/02/24 07/02/24 tablet,extended release 24 hr metoprolol succinate 50 mg 50 mg PO QDAY #100 tabs 07/02/24 07/02/24 tablet,extended release 24 hr triamcinolone acetonide 0.5 % 1 applic topical QDAY #15 grams 07/10/24 topical cream mupirocin 2 % topical ointment 1 applic topical TID PRN Thorn 07/11/24 (Centany) lacerations with infection #22 grams Allergies Allergies Allergy/AdvReac Type Severity Reaction Status Date / Time dextrose 5 % in water (From Allergy Severe Hives Verified 09/28/24 19:59 Zyvox) linezolid (From Zyvox) Allergy Severe Hives Verified 09/28/24 19:59 clindamycin Allergy Hives Verified 09/28/24 19:59 [facility] Medical History Medical History (Updated 09/29/24 @ 07:46 by Prakash Magana MD) Indeterminate pulmonary nodules Surgical History Surgical History (Updated 09/28/24 @ 22:05 by Josi Espinosa RN) S/P cataract surgery Status post total knee replacement, left S/P prostatectomy Urolift Family History Family History (Updated 06/30/24 @ 11:30 by Mary Briscoe LPN) Father High blood pressure Mother Pancreatic cancer Arthritis Suicide Mental disorder Social History Social History (Updated 06/30/24 @ 11:19 by Mary Briscoe LPN) Smoking Status: Never smoker Second hand tobacco smoke exposure: No Do you dip or chew tobacco?: No Do you vape?: No Relationship: Level: Independent Do you feel safe in your home environment?: Yes Suffered physical, verbal, emotional, or financial abuse?: No History of Abuse: No ETOH Use: None Substance Use: denies use POLST Patient has POLST: No Results Lab Results Lab results reviewed: Yes 09/28/24 20:44 09/28/24 20:44 Other Lab Results: Lab Results x24hrs 09/28/24 09/28/24 Range/Units 21:45 20:44 WBC 14.9 H (4.8-10.8) x10^3/uL RBC 5.29 (4.70-6.10) 10^6/uL Hgb 16.2 (14.0-18.0) g/dL Hct 48.6 (42.0-52.0) % MCV 91.9 (80.0-94.0) fL MCH 30.6 (27.0-31.0) pg MCHC 33.3 (32.0-36.0) g/dL RDW 12.8 (12.0-15.0) % Plt Count 236 (130-450) 10^3/uL MPV 9.4 (7.4-11.4) fL Neut # (Auto) 12.0 H (1.5-6.6) 10^3/uL Lymph # (Auto) 1.7 (1.5-3.5) 10^3/uL [place] # (Auto) 0.8 (0.0-1.0) 10^3/uL Eos # (Auto) 0.2 (0.0-0.7) 10^3/uL Baso # (Auto) 0.1 (0.0-0.1) 10^3/uL Absolute Nucleated RBC 0.00 x10^3/uL Nucleated RBC % 0.0 /100WBC Sodium 139 (135-145) mmol/L Potassium 3.6 (3.5-4.5) mmol/L Chloride 101 (101-111) mmol/L Carbon Dioxide 32 (21-32) mmol/L Anion Gap 6.0 (6-13) BUN 14 (6-20) mg/dL Creatinine 1.0 (0.6-1.3) mg/dL Estimated GFR (MDRD) 73 L (>89) Glucose 132 H (74-104) mg/dL Calcium 10.3 (8.5-10.3) mg/dL Total Bilirubin 1.3 H (0.2-1.0) mg/dL AST 20 (10-42) IU/L ALT 18 (10-60) IU/L Alkaline Phosphatase 107 (42-121) IU/L Total Protein 7.3 (6.4-8.9) g/dL Albumin 4.7 (3.2-5.5) g/dL Globulin 2.6 (2.1-4.2) g/dL Albumin/Globulin Ratio 1.8 (1.0-2.2) Lipase 19 (11-82) U/L Urine Color LIGHT YELLOW Urine Clarity CLEAR (CLEAR) Urine pH 6.5 (5.0-7.5) PH Ur Specific [place] 1.020 (1.002-1.030) Urine Protein NEGATIVE (NEGATIVE) mg/dL Urine Glucose (UA) NEGATIVE (NEGATIVE) mg/dL Urine Ketones NEGATIVE (NEGATIVE) mg/dL Urine Occult Blood SMALL H (NEGATIVE) Urine Nitrite NEGATIVE (NEGATIVE) Urine Bilirubin NEGATIVE (NEGATIVE) Urine Urobilinogen 0.2 (NORMAL) (NORMAL) E.U./dL Ur Leukocyte Esterase NEGATIVE (NEGATIVE) Urine RBC 0-5 (0-5) /HPF Urine WBC 0-3 (0-3) /HPF Ur Squamous Epith Cells RARE Squamous (<= Few) Urine Bacteria None Seen (None Seen) /HPF Ur Microscopic Review INDICATED Urine Culture Comments NOT INDICATED Diagnostic Imaging Results Diagnostic Imaging Results: positive Read independently Diagnostic Imaging Results Comments: small bowel bezoar. no real transition zone or kink in the bowel Review of Systems Status of ROS: 10 or more systems reviewed and unremarkable except as noted in history and below Exam Constitutional normal general appearance and no apparent distress HENMT normocephalic and head/scalp atraumatic Eyes PERRL and EOMs intact bilaterally Respiratory normal respiratory effort Gastrointestinal minimal distension. ngt thick and dark Neurology speech normal and GCS 15 Conclusion/Plan Problem List (1) SBO (small bowel obstruction): Plan: likely has poor intestinal motility and has developed a small bowel bezoar. he does not have a real transition point otherwise, ie no kink in the bowel agree with current care. consider gastrografin study if not improving. surgery very unlikely (2) Unspecified essential hypertension: (3) Encounter for long-term current use of medication: (4) Hyperlipidemia: Qualifiers: Hyperlipidemia type: mixed hyperlipidemia Qualified Code(s): E78.2 - Mixed hyperlipidemia Lab Results Lab results reviewed: Yes 09/28/24 20:44 09/28/24 20:44 Diagnostic Imaging Results Diagnostic Imaging Results: positive Read independently
[2024-09-29] MEDS: ONDANSETRON 4 MG/2 ML VIAL IVP PRN (18:32)
[2024-09-29] MEDS: ASPIRIN 325 MG TABLET PO SCH (21:57)
[2024-09-30] MEDS: SODIUM CHLORIDE FLUSH 0.9% 10 ML SYRINGE IVP PRN (02:39)
[2024-09-30] MEDS: CYCLOBENZAPRINE 10 MG TABLET PO PRN ×2 (05:57→12:40)
[2024-09-30] MEDS: amLODIPine 5 MG TABLET PO SCH (08:43)
[2024-09-30 10:57] LABS: BASOPHILS # (AUTO) 0.1 10^3/uL (0.0-0.1); BASOPHILS % (AUTO) 0.4 %; EOSINOPHILS # (AUTO) 0.2 10^3/uL (0.0-0.7); EOSINOPHILS % (AUTO) 1.6 %; HCT - HEMATOCRIT 43.6 % (42.0-52.0); HGB - HEMOGLOBIN 14.5 g/dL (14.0-18.0); LYMPHOCYTES # (AUTO) 2.6 10^3/uL (1.5-3.5); LYMPHOCYTES % (AUTO) 23.5 %; MEAN CORPUSCULAR HEMOGLOBIN 30.9 pg (27.0-31.0); MEAN CORPUSCULAR HGB CONC 33.3 g/dL (32.0-36.0); MEAN CORPUSCULAR VOLUME 92.8 fL (80.0-94.0); MEAN PLATELET VOLUME 9.3 fL (7.4-11.4); MONOCYTES # (AUTO) 0.7 10^3/uL (0.0-1.0); MONOCYTES % (AUTO) 5.9 %; NEUTROPHILS # (AUTO) 7.6 10^3/uL (1.5-6.6); NEUTROPHILS % (AUTO) 68.3 %; PLT - PLATELET COUNT 180 10^3/uL (130-450); RED CELL DISTRIBUTION WIDTH 13.1 % (12.0-15.0); WHITE BLOOD COUNT 11.2 x10^3/uL (4.8-10.8)
[2024-09-30 11:11] LABS: CALCIUM 8.5 mg/dL (8.5-10.3); POTASSIUM 3.4 mmol/L (3.5-4.5)
--- NOTE | 2024-09-30 11:26 | PHARMACY PROGRESS NOTE ---
Best Possible Medication History Admit Date and Time: 09/29/24 [id number] Home Medications Medication Instructions Recorded Confirmed Type morphine 30 mg capsule,extended 30 mg PO BID 01/14/24 09/30/24 History release pellets oxycodone-acetaminophen 5 mg-325 1 tab PO TID 01/14/24 09/30/24 History mg tablet qizaoubj-tga-mssss acid 0.4 1 tab PO QDAY 06/30/24 09/30/24 History mg-lycopene 300 mcg-lutein 250 mcg tablet (Centrum Silver) omega 5-gdo-slb-fish oil 60 mg-90 1 cap PO QDAY 06/30/24 09/30/24 History mg-500 mg capsule (Fish Oil) polyethylene glycol 3350 17 gram 17 g PO QDAY 06/30/24 09/30/24 History oral powder packet (Miralax) simethicone 180 mg capsule 180 mg PO BID PRN abdominal 06/30/24 09/30/24 History distention amlodipine 10 mg tablet (Norvasc) 10 mg PO DAILY #100 tabs 07/02/24 09/30/24 Rx atorvastatin 40 mg tablet 40 mg PO DAILY #100 tabs 07/02/24 09/30/24 Rx metoprolol succinate 100 mg 100 mg PO DAILY #100 tabs 07/02/24 09/30/24 Rx tablet,extended release 24 hr metoprolol succinate 50 mg 50 mg PO QDAY #100 tabs 07/02/24 09/30/24 Rx tablet,extended release 24 hr cyclobenzaprine 5 mg tablet 5 mg PO DAILY PRN muscle spasm 09/30/24 09/30/24 History fluticasone propionate 50 1 spray intranasal QDAY PRN 09/30/24 09/30/24 History mcg/actuation nasal allergy symptoms spray,suspension triamcinolone acetonide 0.5 % 1 applic topical QDAY PRN ECZEMA 09/30/24 09/30/24 History topical cream Processed by: Pharmacy Medications reviewed in ED?: No Medication History completed: Yes Patient Interview: Pt interview ONLY source Secondary Source(s): Pharmacy records [facility] Statement: As the person ultimately responsible for medication therapy, providers are able to order a medication from an existing home medication list in [facility] via the "Reconcile Routine" prior to Confirmation of that medication by donor support technician. Such practice is discouraged except when the physician, in their clinical judgment, deems that a medical need exists for a medication without regard to previous use.
--- NOTE | 2024-09-30 11:37 | PROVIDER PROGRESS NOTE ---
Subjective Prog Note Date Prog Note Date: 09/30/24 Subjective Pt reports feeling: Improved Subjective: Some abdominal pain, Passing gas Current Medications Current Medications Current Medications: Current Medications Generic Name Dose Route Start Last Admin Trade Name Natan PRN Reason Stop Dose Admin Amlodipine Besylate 10 mg 09/30/24 09:00 09/30/24 08:43 Amlodipine 5 Mg Tablet PO 10 mg DAILY FILIPPO Administration Aspirin 650 mg 09/29/24 21:00 09/29/24 21:57 Aspirin 325 Mg Tablet PO 650 mg HS FILIPPO Administration Cyclobenzaprine HCl 5 mg 09/29/24 19:37 09/30/24 05:57 Cyclobenzaprine 10 Mg Tablet PO 5 mg TID PRN Administration muscle spasm Cyclobenzaprine HCl 5 mg 09/30/24 11:27 Cyclobenzaprine 10 Mg Tablet PO DAILY PRN muscle spasm Fluticasone Propionate sprays 09/30/24 11:27 Fluticasone Nasal [place] DEN QDAY PRN allergy symptoms Hydralazine HCl 10 mg 09/29/24 12:09 Hydralazine Inj 20 Mg/Ml Vial IVP DAILY PRN SBP> or= 160 OR DBP> or= 110 Hydromorphone HCl 0.5 mg 09/29/24 11:19 09/30/24 10:32 Hydromorphone 0.5 Mg/0.5 Ml Syringe IVP 0.5 mg Q4HR PRN Administration Pain 8 to 10 Sodium Chloride 1,000 mls @ 150 mls/hr 09/29/24 11:19 09/30/24 04:32 Normal Saline 0.9% IV 150 mls/hr .Q6H40M FILIPPO Administration Ondansetron HCl 4 mg 09/29/24 11:19 09/29/24 18:32 Ondansetron 4 Mg/2 Ml Vial IVP 4 mg Q6HR PRN Administration Nausea / Vomiting Sodium Chloride 10 ml 09/29/24 11:19 09/30/24 05:58 Sodium Chloride Flush 0.9% 10 Ml Syringe IVP 10 ml PRN PRN Administration NEEDED PER PROVIDER ORDERS Sodium Chloride 10 ml 09/29/24 17:00 09/30/24 08:43 Sodium Chloride Flush 0.9% 10 Ml Syringe IVP 10 ml 0100,0900,1700 FILIPPO Administration Objective Vital Signs/Intake & Output Reviewed Vital Signs: Yes Vital Signs: Vital Signs x48h Temp Pulse Resp BP Pulse Ox 09/30/24 08:00 36.8 C 72 18 149/67 H 92 09/30/24 06:00 74 15 167/81 H 92 09/30/24 05:51 72 14 171/84 H 92 Intake & Output: Intake & Output 09/27/24 09/28/24 09/29/24 09/30/24 23:59 23:59 23:59 23:59 Intake Total 3193 / 3193 1020 / 1020 Output Total 1100 / 1100 450 / 450 Balance 3 / 2093 570 / 570 Weight (kg) 95.254 kg 95 kg Objective General Appearance: positive No acute distress and Alert Eyes Bilateral: positive Normal inspection and PERRL ENT: positive ENT inspection nml Neck: positive Nml inspection Respiratory: positive Chest non-tender Cardiovascular: positive Regular rate & rhythm Abdomen: positive Tenderness Skin: positive Color nml Extremities: positive Non-tender Neurologic/Psychiatric: positive Oriented x3 Lab Results 09/30/24 10:51 09/30/24 10:51 Other Labs: Lab Results x24hrs 09/30/24 Range/Units 10:51 WBC 11.2 H (4.8-10.8) x10^3/uL RBC 4.70 (4.70-6.10) 10^6/uL Hgb 14.5 (14.0-18.0) g/dL Hct 43.6 (42.0-52.0) % MCV 92.8 (80.0-94.0) fL MCH 30.9 (27.0-31.0) pg MCHC 33.3 (32.0-36.0) g/dL RDW 13.1 (12.0-15.0) % Plt Count 180 (130-450) 10^3/uL MPV 9.3 (7.4-11.4) fL Neut # (Auto) 7.6 H (1.5-6.6) 10^3/uL Lymph # (Auto) 2.6 (1.5-3.5) 10^3/uL [place] # (Auto) 0.7 (0.0-1.0) 10^3/uL Eos # (Auto) 0.2 (0.0-0.7) 10^3/uL Baso # (Auto) 0.1 (0.0-0.1) 10^3/uL Absolute Nucleated RBC 0.00 x10^3/uL Nucleated RBC % 0.0 /100WBC Sodium 143 (135-145) mmol/L Potassium 3.4 L (3.5-4.5) mmol/L Chloride 107 (101-111) mmol/L Carbon Dioxide 29 (21-32) mmol/L Anion Gap 7.0 (6-13) BUN 18 (6-20) mg/dL Creatinine 1.0 (0.6-1.3) mg/dL Estimated GFR (MDRD) 73 L (>89) Glucose 95 (74-104) mg/dL Calcium 8.5 (8.5-10.3) mg/dL Assessment/Plan Problem List (1) SBO (small bowel obstruction): Impression: Surgery following Continue NG tube to low intermittent suction Continue sips/chips diet I am continuing NS at 150, Continuing to watch for signs of fluid overload I will discuss with general surgery today regarding possible Gastrografin study. This could be diagnostic as well as therapeutic (2) Unspecified essential hypertension: Impression: After discussion with general surgery, he is cleared to start p.o. meds. I have restarted his home dose metoprolol 150 mg p.o. daily, amlodipine 10 mg p.o. daily. I am discontinuing his enalaprilat (3) Encounter for long-term current use of medication: Impression: His opiate use is likely the primary contributor to his small bowel obstruction/bezoar. His chronic pain is currently managed with his home dose of Flexeril and as needed Dilaudid. When his small bowel obstruction clears, he will need to be on a aggressive bowel regimen at discharge (4) Hyperlipidemia: Impression: I am restarting home dose atorvastatin Qualifiers: Hyperlipidemia type: mixed hyperlipidemia Qualified Code(s): E78.2 - Mixed hyperlipidemia
[2024-09-30] MEDS: METOPROLOL SUCCINATE 50 MG TABLET PO SCH (12:40)
[2024-09-30] MEDS: HYDROmorphone 0.5 MG/0.5 ML SYRINGE IVP PRN (13:07)
--- NOTE | 2024-09-30 13:19 | PROVIDER PROGRESS NOTE ---
Subjective Subjective Pt reports feeling: Improved Subjective: feeling better. passing some gas Current Medications Current Medications Current Medications: Current Medications Generic Name Dose Route Start Last Admin Trade Name Freq PRN Reason Stop Dose Admin Amlodipine Besylate 10 mg 09/30/24 09:00 09/30/24 08:43 Amlodipine 5 Mg Tablet PO 10 mg DAILY FILIPPO Administration Aspirin 650 mg 09/29/24 21:00 09/29/24 21:57 Aspirin 325 Mg Tablet PO 650 mg HS FILIPPO Administration Atorvastatin Calcium 40 mg 09/30/24 21:00 Atorvastatin 40 Mg Tablet PO QPM FILIPPO Cyclobenzaprine HCl 5 mg 09/30/24 11:27 09/30/24 12:40 Cyclobenzaprine 10 Mg Tablet PO 5 mg DAILY PRN Administration muscle spasm Fluticasone Propionate 1 sprays 09/30/24 11:27 Fluticasone Nasal [place] DEN DAILY PRN Allergy Symptoms Hydralazine HCl 10 mg 09/29/24 12:09 Hydralazine Inj 20 Mg/Ml Vial IVP DAILY PRN SBP> or= 160 OR DBP> or= 110 Hydromorphone HCl 0.5 mg 09/30/24 13:04 09/30/24 13:07 Hydromorphone 0.5 Mg/0.5 Ml Syringe IVP 0.5 mg Q2H PRN Administration Pain 8 to 10 Sodium Chloride 1,000 mls @ 150 mls/hr 09/29/24 11:19 09/30/24 11:48 Normal Saline 0.9% IV 150 mls/hr .Q6H40M FILIPPO Administration Metoprolol Succinate 150 mg 09/30/24 12:00 09/30/24 12:40 Metoprolol Succinate 50 Mg Tablet PO 150 mg DAILY FILIPPO Administration Ondansetron HCl 4 mg 09/29/24 11:19 09/29/24 18:32 Ondansetron 4 Mg/2 Ml Vial IVP 4 mg Q6HR PRN Administration Nausea / Vomiting Sodium Chloride 10 ml 09/29/24 11:19 09/30/24 05:58 Sodium Chloride Flush 0.9% 10 Ml Syringe IVP 10 ml PRN PRN Administration NEEDED PER PROVIDER ORDERS Sodium Chloride 10 ml 09/29/24 17:00 09/30/24 08:43 Sodium Chloride Flush 0.9% 10 Ml Syringe IVP 10 ml 0100,0900,1700 FILIPPO Administration Objective Vital Signs/Intake & Output Reviewed Vital Signs: Yes Vital Signs: Vital Signs x48h Temp Pulse Resp BP Pulse Ox 09/30/24 12:46 177/74 H 09/30/24 08:00 36.8 C 72 18 149/67 H 92 09/30/24 06:00 74 15 167/81 H 92 09/30/24 05:51 72 14 171/84 H 92 Intake & Output: Intake & Output 09/27/24 09/28/24 09/29/24 09/30/24 23:59 23:59 23:59 23:59 Intake Total 3193 / 3193 2049 Output Total 1100 / 1100 450 / 450 Balance 2092 1600 / 1600 Weight (kg) 95.254 kg 95 kg Objective General Appearance: positive No acute distress and Alert Respiratory: positive No respiratory distress Abdomen: positive Other (mild distension. ngt output improved. less and now green instead of brown) Neurologic/Psychiatric: positive Oriented x3 Lab Results 09/30/24 10:51 09/30/24 10:51 Other Labs: Lab Results x24hrs 09/30/24 Range/Units 10:51 WBC 11.2 H (4.8-10.8) x10^3/uL RBC 4.70 (4.70-6.10) 10^6/uL Hgb 14.5 (14.0-18.0) g/dL Hct 43.6 (42.0-52.0) % MCV 92.8 (80.0-94.0) fL MCH 30.9 (27.0-31.0) pg MCHC 33.3 (32.0-36.0) g/dL RDW 13.1 (12.0-15.0) % Plt Count 180 (130-450) 10^3/uL MPV 9.3 (7.4-11.4) fL Neut # (Auto) 7.6 H (1.5-6.6) 10^3/uL Lymph # (Auto) 2.6 (1.5-3.5) 10^3/uL [place] # (Auto) 0.7 (0.0-1.0) 10^3/uL Eos # (Auto) 0.2 (0.0-0.7) 10^3/uL Baso # (Auto) 0.1 (0.0-0.1) 10^3/uL Absolute Nucleated RBC 0.00 x10^3/uL Nucleated RBC % 0.0 /100WBC Sodium 143 (135-145) mmol/L Potassium 3.4 L (3.5-4.5) mmol/L Chloride 107 (101-111) mmol/L Carbon Dioxide 29 (21-32) mmol/L Anion Gap 7.0 (6-13) BUN 18 (6-20) mg/dL Creatinine 1.0 (0.6-1.3) mg/dL Estimated GFR (MDRD) 73 L (>89) Glucose 95 (74-104) mg/dL Calcium 8.5 (8.5-10.3) mg/dL Assessment/Plan Problem List (1) SBO (small bowel obstruction): Impression: likely slow bowel motility due to narcotics and bezoar in his small bowel without bowel inflammation or kink. should resolve without surgery. if not improving daily consider gastrograffin. ngt output much improved today and he is passing gas. (2) Unspecified essential hypertension: (3) Encounter for long-term current use of medication: (4) Hyperlipidemia: Qualifiers: Hyperlipidemia type: mixed hyperlipidemia Qualified Code(s): E78.2 - Mixed hyperlipidemia
[2024-09-30] MEDS: SIMETHICONE CHEW 80 MG TABLET PO PRN (20:34)
[2024-09-30] MEDS: ATORVASTATIN 40 MG TABLET PO SCH (20:34)
[2024-09-30] MEDS: ACETAMINOPHEN 500 MG TABLET PO SCH (21:35)
[2024-09-30] MEDS: cloNIDine 0.1 MG TABLET PO SCH (21:36)
[2024-10-01] MEDS: hydrALAZINE INJ 20 MG/ML VIAL IVP PRN (00:38)
[2024-10-01] MEDS: oxyCODONE 5 MG TABLET PO PRN (05:36)
[2024-10-01] MEDS: ACETAMINOPHEN 500 MG TABLET PO SCH (05:36)
[2024-10-01 10:09] LABS: BASOPHILS # (AUTO) 0.1 10^3/uL (0.0-0.1); BASOPHILS % (AUTO) 0.4 %; EOSINOPHILS % (AUTO) 0.1 %; HCT - HEMATOCRIT 44.4 % (42.0-52.0); LYMPHOCYTES # (AUTO) 1.7 10^3/uL (1.5-3.5); MEAN CORPUSCULAR HEMOGLOBIN 30.8 pg (27.0-31.0); MEAN CORPUSCULAR HGB CONC 33.8 g/dL (32.0-36.0); MEAN CORPUSCULAR VOLUME 91.2 fL (80.0-94.0); MEAN PLATELET VOLUME 9.2 fL (7.4-11.4); MONOCYTES # (AUTO) 0.7 10^3/uL (0.0-1.0); MONOCYTES % (AUTO) 5.4 %; NEUTROPHILS # (AUTO) 11.1 10^3/uL (1.5-6.6); NEUTROPHILS % (AUTO) 81.4 %; PLT - PLATELET COUNT 177 10^3/uL (130-450); RED BLOOD COUNT 4.87 10^6/uL (4.70-6.10); RED CELL DISTRIBUTION WIDTH 12.9 % (12.0-15.0); WHITE BLOOD COUNT 13.7 x10^3/uL (4.8-10.8)
[2024-10-01 10:19] LABS: CALCIUM 8.7 mg/dL (8.5-10.3); CREATININE 0.8 mg/dL (0.6-1.3)
--- NOTE | 2024-10-01 11:24 | PROVIDER PROGRESS NOTE ---
Subjective Prog Note Date Prog Note Date: 10/01/24 Subjective Pt reports feeling: No change Current Medications Current Medications Current Medications: Current Medications Generic Name Dose Route Start Last Admin Trade Name Natan PRN Reason Stop Dose Admin Acetaminophen 1,000 mg 10/01/24 06:00 10/01/24 05:36 Acetaminophen 500 Mg Tablet PO 1,000 mg Q6H FILIPPO Administration Amlodipine Besylate 10 mg 09/30/24 09:00 10/01/24 09:29 Amlodipine 5 Mg Tablet PO 10 mg DAILY FILIPPO Administration Aspirin 650 mg 09/29/24 21:00 09/30/24 20:34 Aspirin 325 Mg Tablet PO 650 mg HS FILIPPO Administration Atorvastatin Calcium 40 mg 09/30/24 21:00 09/30/24 20:34 Atorvastatin 40 Mg Tablet PO 40 mg QPM FILIPPO Administration Clonidine HCl 0.1 mg 09/30/24 21:00 10/01/24 09:28 Clonidine 0.1 Mg Tablet PO 0.1 mg QID FILIPPO Administration Cyclobenzaprine HCl 5 mg 09/30/24 11:27 10/01/24 09:29 Cyclobenzaprine 10 Mg Tablet PO 5 mg DAILY PRN Administration muscle spasm Fluticasone Propionate 1 sprays 09/30/24 11:27 Fluticasone Nasal [place] DEN DAILY PRN Allergy Symptoms Hydralazine HCl 10 mg 09/29/24 12:09 10/01/24 08:04 Hydralazine Inj 20 Mg/Ml Vial IVP 10 mg DAILY PRN Administration SBP> or= 160 OR DBP> or= 110 Hydromorphone HCl 0.5 mg 09/30/24 13:04 10/01/24 08:04 Hydromorphone 0.5 Mg/0.5 Ml Syringe IVP 0.5 mg Q2H PRN Administration Pain 8 to 10 Sodium Chloride 1,000 mls @ 150 mls/hr 09/29/24 11:19 10/01/24 09:29 Normal Saline 0.9% IV 150 mls/hr .Q6H40M FILIPPO Administration Potassium Chloride 10 meq in 100 mls @ 100 mls/hr 10/01/24 11:00 Potassium Chloride IV 10/01/24 14:59 Q1H FILIPPO Lisinopril 20 mg 10/01/24 11:00 Lisinopril 20 Mg Tablet PO DAILY FILIPPO Metoprolol Succinate 150 mg 09/30/24 12:00 10/01/24 09:28 Metoprolol Succinate 50 Mg Tablet PO 150 mg DAILY FILIPPO Administration Ondansetron HCl 4 mg 09/29/24 11:19 10/01/24 08:06 Ondansetron 4 Mg/2 Ml Vial IVP 4 mg Q6HR PRN Administration Nausea / Vomiting Oxycodone HCl 5 mg 09/30/24 20:52 10/01/24 05:36 Oxycodone 5 Mg Tablet PO 5 mg Q4HR PRN Administration Moderate Pain (Level 4-6) Simethicone 80 mg 09/30/24 19:52 09/30/24 20:34 Simethicone Chew 80 Mg Tablet PO 80 mg 0900,1300,1800,2100 PRN Administration Abdominal Pain Sodium Chloride 10 ml 09/29/24 11:19 09/30/24 17:19 Sodium Chloride Flush 0.9% 10 Ml Syringe IVP 10 ml PRN PRN Administration NEEDED PER PROVIDER ORDERS Sodium Chloride 10 ml 09/29/24 17:00 10/01/24 09:29 Sodium Chloride Flush 0.9% 10 Ml Syringe IVP 10 ml 0100,0900,1700 FILIPPO Administration Objective Vital Signs/Intake & Output Reviewed Vital Signs: Yes Vital Signs: Vital Signs x48h Temp Pulse Resp BP BP Pulse Ox 10/01/24 08:20 177/72 H 10/01/24 08:04 183/90 H 10/01/24 07:30 36.7 C 81 20 183/90 H 96 Intake & Output: Intake & Output 09/28/24 09/29/24 09/30/24 10/01/24 23:59 23:59 23:59 23:59 Intake Total 3193 / 3193 3140 / 3140 2150 / 2150 Output Total 1100 / 1100 450 / 450 1700 / 1700 Balance 2093 / 2093 2690 / 2690 450 / 450 Weight (kg) 95.254 kg 95 kg Objective General Appearance: positive No acute distress and Alert Eyes Bilateral: positive Normal inspection Respiratory: positive No respiratory distress Cardiovascular: positive Regular rate & rhythm Abdomen: positive Other (mild distension. ngt output improved. less and now green instead of brown) Skin: positive Color nml Extremities: positive Non-tender and Full ROM Neurologic/Psychiatric: positive Oriented x3 Lab Results 10/01/24 10:01 10/01/24 10:01 Other Labs: Lab Results x24hrs 10/01/24 Range/Units 10:01 WBC 13.7 H (4.8-10.8) x10^3/uL RBC 4.87 (4.70-6.10) 10^6/uL Hgb 15.0 (14.0-18.0) g/dL Hct 44.4 (42.0-52.0) % MCV 91.2 (80.0-94.0) fL MCH 30.8 (27.0-31.0) pg MCHC 33.8 (32.0-36.0) g/dL RDW 12.9 (12.0-15.0) % Plt Count 177 (130-450) 10^3/uL MPV 9.2 (7.4-11.4) fL Neut # (Auto) 11.1 H (1.5-6.6) 10^3/uL Lymph # (Auto) 1.7 (1.5-3.5) 10^3/uL [place] # (Auto) 0.7 (0.0-1.0) 10^3/uL Eos # (Auto) 0.0 (0.0-0.7) 10^3/uL Baso # (Auto) 0.1 (0.0-0.1) 10^3/uL Absolute Nucleated RBC 0.00 x10^3/uL Nucleated RBC % 0.0 /100WBC Sodium 140 (135-145) mmol/L Potassium 3.0 L (3.5-4.5) mmol/L Chloride 104 (101-111) mmol/L Carbon Dioxide 26 (21-32) mmol/L Anion Gap 10.0 (6-13) BUN 13 (6-20) mg/dL Creatinine 0.8 (0.6-1.3) mg/dL Estimated GFR (MDRD) 94 (>89) Glucose 102 (74-104) mg/dL Calcium 8.7 (8.5-10.3) mg/dL Assessment/Plan Problem List (1) SBO (small bowel obstruction): Impression: Likely slow bowel motility due to narcotics and bezoar in a small bowel without inflammation or kink Surgery following I am continuing NG tube to LIS He is now having bowel movements, still passing gas. NG tube output has improved He is having pain with his small bowel obstruction, which is not surprising given his large amount of opiate use at home. I have ordered scheduled Tylenol, scheduled Flexeril 5 mg, hydromorphone 0.5 mg every 2 hours as needed, oxycodone 5 mg every 4 hours as needed as well as simethicone 80 mg 4 times daily as needed (2) Unspecified essential hypertension: Impression: His blood pressure this morning on his home regimen was 177/72. I am adding lisinopril 20 mg p.o. daily and we will continue to watch his blood pressure per unit protocol (3) Encounter for long-term current use of medication: Impression: He is on a significant dose of p.o. opiates at home, which is what likely caused his bowel obstruction. I have started him on 4 times daily clonidine 0.1mg to help him tolerate a lower total dose of opiates as described above (4) Hyperlipidemia: Impression: Continue home statin Qualifiers: Hyperlipidemia type: mixed hyperlipidemia Qualified Code(s): E78.2 - Mixed hyperlipidemia
[2024-10-01] MEDS: POTASSIUM CHLOR 10 MEQ/100 ML 10 MEQ/100 ML BAG IV SCH (11:49)
[2024-10-01] MEDS: lisinopriL 20 MG TABLET PO SCH (11:51)
--- NOTE | 2024-10-01 15:08 | PROVIDER PROGRESS NOTE ---
Subjective Subjective Pt reports feeling: No change Subjective: feeling ok. having bms. abdomen minimal to no distension Current Medications Current Medications Current Medications: Current Medications Generic Name Dose Route Start Last Admin Trade Name Freq PRN Reason Stop Dose Admin Acetaminophen 1,000 mg 10/01/24 06:00 10/01/24 11:48 Acetaminophen 500 Mg Tablet PO 1,000 mg Q6H FILIPPO Administration Amlodipine Besylate 10 mg 09/30/24 09:00 10/01/24 09:29 Amlodipine 5 Mg Tablet PO 10 mg DAILY FILIPPO Administration Aspirin 650 mg 09/29/24 21:00 09/30/24 20:34 Aspirin 325 Mg Tablet PO 650 mg HS FILIPPO Administration Atorvastatin Calcium 40 mg 09/30/24 21:00 09/30/24 20:34 Atorvastatin 40 Mg Tablet PO 40 mg QPM FILIPPO Administration Clonidine HCl 0.1 mg 09/30/24 21:00 10/01/24 12:07 Clonidine 0.1 Mg Tablet PO 0.1 mg QID FILIPPO Administration Cyclobenzaprine HCl 5 mg 09/30/24 11:27 10/01/24 09:29 Cyclobenzaprine 10 Mg Tablet PO 5 mg DAILY PRN Administration muscle spasm Fluticasone Propionate 1 sprays 09/30/24 11:27 Fluticasone Nasal [place] DEN DAILY PRN Allergy Symptoms Hydralazine HCl 10 mg 09/29/24 12:09 10/01/24 08:04 Hydralazine Inj 20 Mg/Ml Vial IVP 10 mg DAILY PRN Administration SBP> or= 160 OR DBP> or= 110 Hydromorphone HCl 0.5 mg 09/30/24 13:04 10/01/24 11:49 Hydromorphone 0.5 Mg/0.5 Ml Syringe IVP 0.5 mg Q2H PRN Administration Pain 8 to 10 Sodium Chloride 1,000 mls @ 150 mls/hr 09/29/24 11:19 10/01/24 09:29 Normal Saline 0.9% IV 150 mls/hr .Q6H40M IFLIPPO Administration Lisinopril 20 mg 10/01/24 11:00 10/01/24 11:51 Lisinopril 20 Mg Tablet PO 20 mg DAILY FILIPPO Administration Metoprolol Succinate 150 mg 09/30/24 12:00 10/01/24 09:28 Metoprolol Succinate 50 Mg Tablet PO 150 mg DAILY FILIPPO Administration Ondansetron HCl 4 mg 09/29/24 11:19 10/01/24 08:06 Ondansetron 4 Mg/2 Ml Vial IVP 4 mg Q6HR PRN Administration Nausea / Vomiting Oxycodone HCl 5 mg 09/30/24 20:52 10/01/24 11:49 Oxycodone 5 Mg Tablet PO 5 mg Q4HR PRN Administration Moderate Pain (Level 4-6) Simethicone 80 mg 09/30/24 19:52 09/30/24 20:34 Simethicone Chew 80 Mg Tablet PO 80 mg 0900,1300,1800,2100 PRN Administration Abdominal Pain Sodium Chloride 10 ml 09/29/24 11:19 09/30/24 17:19 Sodium Chloride Flush 0.9% 10 Ml Syringe IVP 10 ml PRN PRN Administration NEEDED PER PROVIDER ORDERS Sodium Chloride 10 ml 09/29/24 17:00 10/01/24 09:29 Sodium Chloride Flush 0.9% 10 Ml Syringe IVP 10 ml 0100,0900,1700 FILIPPO Administration Objective Vital Signs/Intake & Output Vital Signs: Vital Signs x48h Temp Pulse Resp BP BP Pulse Ox 10/01/24 08:20 177/72 H 10/01/24 08:04 183/90 H 10/01/24 07:30 36.7 C 81 20 183/90 H 96 Intake & Output: Intake & Output 09/28/24 09/29/24 09/30/24 10/01/24 23:59 23:59 23:59 23:59 Intake Total 3193 / 3193 3140 / 3140 2523 / 2523 Output Total 1100 / 1100 450 / 450 1700 / 1700 Balance 2093 / 2093 2690 / 2690 823 / 823 Weight (kg) 95.254 kg 95 kg Objective General Appearance: positive No acute distress and Alert Respiratory: positive No respiratory distress Abdomen: positive Other (soft with minimal to no distension or tenderness. ngt looks a little bloody today. thin. higher output today however still much improved from admit.) Lab Results 10/01/24 10:01 10/01/24 10:01 Other Labs: Lab Results x24hrs 10/01/24 Range/Units 10:01 WBC 13.7 H (4.8-10.8) x10^3/uL RBC 4.87 (4.70-6.10) 10^6/uL Hgb 15.0 (14.0-18.0) g/dL Hct 44.4 (42.0-52.0) % MCV 91.2 (80.0-94.0) fL MCH 30.8 (27.0-31.0) pg MCHC 33.8 (32.0-36.0) g/dL RDW 12.9 (12.0-15.0) % Plt Count 177 (130-450) 10^3/uL MPV 9.2 (7.4-11.4) fL Neut # (Auto) 11.1 H (1.5-6.6) 10^3/uL Lymph # (Auto) 1.7 (1.5-3.5) 10^3/uL [place] # (Auto) 0.7 (0.0-1.0) 10^3/uL Eos # (Auto) 0.0 (0.0-0.7) 10^3/uL Baso # (Auto) 0.1 (0.0-0.1) 10^3/uL Absolute Nucleated RBC 0.00 x10^3/uL Nucleated RBC % 0.0 /100WBC Sodium 140 (135-145) mmol/L Potassium 3.0 L (3.5-4.5) mmol/L Chloride 104 (101-111) mmol/L Carbon Dioxide 26 (21-32) mmol/L Anion Gap 10.0 (6-13) BUN 13 (6-20) mg/dL Creatinine 0.8 (0.6-1.3) mg/dL Estimated GFR (MDRD) 94 (>89) Glucose 102 (74-104) mg/dL Calcium 8.7 (8.5-10.3) mg/dL Assessment/Plan Problem List (1) SBO (small bowel obstruction): Impression: partial sbo. agree with current care and gastrograffin study tomorrow if not clearly improved. recommend antacid (2) Unspecified essential hypertension: (3) Encounter for long-term current use of medication: (4) Hyperlipidemia: Qualifiers: Hyperlipidemia type: mixed hyperlipidemia Qualified Code(s): E78.2 - Mixed hyperlipidemia
[2024-10-01] MEDS ORDERED: PHENOL THROAT SPRAY 177 ML MM PRN (17:08)
[2024-10-01] MEDS: PANTOPRAZOLE 80 MG in SODIUM CHLORIDE 0.9% 100ML 100 ML IV SCH (19:20)
--- NOTE | 2024-10-02 08:45 | PROVIDER PROGRESS NOTE ---
<Statement entered by Chino Sinclair DNP - 10/02/24 17:51> Patient was seen and examined by me with a separate encounter after being seen by ZACKERY student. I reviewed the student's documentation including patient history, physical examination, laboratory, imaging, clinical assessment and treatment plan. I have discussed the management of the patient with the student, and with the patient. There are no changes. After conference with general surgery, Gastrografin study was started. This study showed no obstruction, so I am adding back a diet Subjective Prog Note Date Prog Note Date: 10/02/24 Prog Note Time: 08:40 Subjective Pt reports feeling: Worse (Patient reports increased pain this morning) Subjective: Patient is a 74 year old male with a history of multiple abdominal surgeries, including an open exploratory abdominal surgery in 2012. The wound from that surgery dehisced and became infected, patient now has an abdominal mesh in place. He also has a history of hypertension. Patient stated he has had several prior bowel obstructions. He was admitted for management of a small bowel obstruction involving the jejunal loops. Patient has an NG tube in place and has been receiving some medication via NG as well as IV meds. Patient was laying flat in bed, in no apparent distress. He stated his abdominal pain was worse today than yesterday and said he was "about done" with all of this. His affect seemed mildly depressed. Patient stated he did not feel his pain was well-controlled at this time. His pain improves immediately after receiving a dose of pain medication but the effects wear off after about 2 hours and his pain returns. Patient states he is hesitant to ask for additional pain meds as he does not want to bother anyone. He also stated that he has been experiencing withdrawal symptoms at least once a day. Patient stated he had a bowel movement earlier today and he has been passing gas. He experiences some nausea when he gets his pain meds but it resolves with concurrent administration of anti-nausea medication. He denies any vomiting. Hospitalist team ordered a small bowel follow-through with gastrograffin, which the patient had done after my initial visit with him today. Following the procedure, he had a significant bowel movement and it is likely that the obstruction has cleared. The NG tube was removed. Current Medications Current Medications Current Medications: Current Medications Generic Name Dose Route Start Last Admin Trade Name Freq PRN Reason Stop Dose Admin Acetaminophen 1,000 mg 10/01/24 06:00 10/02/24 06:50 Acetaminophen 500 Mg Tablet PO 1,000 mg Q6H FILIPPO Administration Amlodipine Besylate 10 mg 09/30/24 09:00 10/01/24 09:29 Amlodipine 5 Mg Tablet PO 10 mg DAILY FILIPPO Administration Aspirin 650 mg 09/29/24 21:00 10/01/24 22:05 Aspirin 325 Mg Tablet PO 650 mg HS FILIPPO Administration Atorvastatin Calcium 40 mg 09/30/24 21:00 10/01/24 22:06 Atorvastatin 40 Mg Tablet PO 40 mg QPM FILIPPO Administration Clonidine HCl 0.1 mg 09/30/24 21:00 10/01/24 22:05 Clonidine 0.1 Mg Tablet PO 0.1 mg QID FILIPPO Administration Cyclobenzaprine HCl 5 mg 09/30/24 11:27 10/01/24 09:29 Cyclobenzaprine 10 Mg Tablet PO 5 mg DAILY PRN Administration muscle spasm Fluticasone Propionate 1 sprays 09/30/24 11:27 Fluticasone Nasal [place] DEN DAILY PRN Allergy Symptoms Hydralazine HCl 10 mg 09/29/24 12:09 10/01/24 08:04 Hydralazine Inj 20 Mg/Ml Vial IVP 10 mg DAILY PRN Administration SBP> or= 160 OR DBP> or= 110 Hydromorphone HCl 0.5 mg 09/30/24 13:04 10/02/24 07:47 Hydromorphone 0.5 Mg/0.5 Ml Syringe IVP 0.5 mg Q2H PRN Administration Pain 8 to 10 Sodium Chloride 1,000 mls @ 150 mls/hr 09/29/24 11:19 10/02/24 04:23 Normal Saline 0.9% IV 150 mls/hr .Q6H40M FILIPPO Administration Pantoprazole Sodium 80 mg/ 100 mls @ 200 mls/hr 10/01/24 19:00 10/01/24 20:28 Sodium Chloride IV Infused DAILY FILIPPO Infusion Lisinopril 20 mg 10/01/24 11:00 10/01/24 11:51 Lisinopril 20 Mg Tablet PO 20 mg DAILY FILIPPO Administration Metoprolol Succinate 150 mg 09/30/24 12:00 10/01/24 09:28 Metoprolol Succinate 50 Mg Tablet PO 150 mg DAILY FILIPPO Administration Ondansetron HCl 4 mg 09/29/24 11:19 10/02/24 07:46 Ondansetron 4 Mg/2 Ml Vial IVP 4 mg Q6HR PRN Administration Nausea / Vomiting Oxycodone HCl 5 mg 09/30/24 20:52 10/02/24 01:10 Oxycodone 5 Mg Tablet PO 5 mg Q4HR PRN Administration Moderate Pain (Level 4-6) Phenol/Menthol 2 sprays 10/01/24 17:08 Phenol Throat [place] 177 Ml MM Q2HR PRN Throat Pain Simethicone 80 mg 09/30/24 19:52 09/30/24 20:34 Simethicone Chew 80 Mg Tablet PO 80 mg 0900,1300,1800,2100 PRN Administration Abdominal Pain Sodium Chloride 10 ml 09/29/24 11:19 09/30/24 17:19 Sodium Chloride Flush 0.9% 10 Ml Syringe IVP 10 ml PRN PRN Administration NEEDED PER PROVIDER ORDERS Sodium Chloride 10 ml 09/29/24 17:00 10/02/24 00:10 Sodium Chloride Flush 0.9% 10 Ml Syringe IVP Not Given 0100,0900,1700 [facility] Objective Vital Signs/Intake & Output Reviewed Vital Signs: Yes Vital Signs: Vital Signs x48h Temp Pulse Resp BP Pulse Ox O2 Flow Rate 10/02/24 07:24 36.7 C 72 18 150/76 H 94 0 Intake & Output: Intake & Output 09/29/24 09/30/24 10/01/24 10/02/24 23:59 23:59 23:59 23:59 Intake Total 3193 / 3193 3140 / 3140 4866 / 4866 1060 / 1060 Output Total 1100 / 1100 450 / 450 2700 / 2700 Balance 2093 / 2093 2690 / 2690 2166 / 2166 1060 / 1060 Weight (kg) 95 kg Objective General Appearance: positive No acute distress and Alert Eyes Bilateral: positive Normal inspection Neck: positive Nml inspection Respiratory: positive Chest non-tender and Breath sounds nml Cardiovascular: positive Regular rate & rhythm and No murmur Abdomen: positive Tenderness (Tender to palpation in both lower quadrants) and Abnml bowel sounds (Decreased bowel sounds in left lower quadrant) Skin: positive Color nml Extremities: positive Non-tender and No pedal edema Neurologic/Psychiatric: positive Oriented x3 Lab Results 10/02/24 09:44 10/02/24 09:44 Other Labs: Lab Results x24hrs 10/01/24 Range/Units 10:01 WBC 13.7 H (4.8-10.8) x10^3/uL RBC 4.87 (4.70-6.10) 10^6/uL Hgb 15.0 (14.0-18.0) g/dL Hct 44.4 (42.0-52.0) % MCV 91.2 (80.0-94.0) fL MCH 30.8 (27.0-31.0) pg MCHC 33.8 (32.0-36.0) g/dL RDW 12.9 (12.0-15.0) % Plt Count 177 (130-450) 10^3/uL MPV 9.2 (7.4-11.4) fL Neut # (Auto) 11.1 H (1.5-6.6) 10^3/uL Lymph # (Auto) 1.7 (1.5-3.5) 10^3/uL [place] # (Auto) 0.7 (0.0-1.0) 10^3/uL Eos # (Auto) 0.0 (0.0-0.7) 10^3/uL Baso # (Auto) 0.1 (0.0-0.1) 10^3/uL Absolute Nucleated RBC 0.00 x10^3/uL Nucleated RBC % 0.0 /100WBC Sodium 140 (135-145) mmol/L Potassium 3.0 L (3.5-4.5) mmol/L Chloride 104 (101-111) mmol/L Carbon Dioxide 26 (21-32) mmol/L Anion Gap 10.0 (6-13) BUN 13 (6-20) mg/dL Creatinine 0.8 (0.6-1.3) mg/dL Estimated GFR (MDRD) 94 (>89) Glucose 102 (74-104) mg/dL Calcium 8.7 (8.5-10.3) mg/dL Assessment/Plan Problem List (1) SBO (small bowel obstruction): Impression: Likely due to heavy use of home narcotics for management of chronic pain causing slow bowel motility. Patient states he has been having bowel movements and is passing gas Patient needs to be on an aggressive bowel regimen at home Patient had a small bowel follow-through with gastrograffin after which the NG tube was removed. Hold off solid food diet until after clearance from the surgeon (2) Unspecified essential hypertension: Impression: Transition from oral hypertension medications to IV hydralazine 10 mg IVP PRN. Will monitor blood pressures and switch to regularly scheduled doses of IV hydralazine if patient's numbers increase. (3) Encounter for long-term current use of medication: Impression: Patient is on significant PO opioids at home, leading to slowed bowel motility and possibly bowel obstruction. He was prescribed clonidine 0.1 mg 4 times per day to help with pain management and decrease the amount of opioids he is taking. (4) Hyperlipidemia: Impression: Hold statins for now until oral medications are restarted Qualifiers: Hyperlipidemia type: mixed hyperlipidemia Qualified Code(s): E78.2 - Mixed hyperlipidemia
[2024-10-02 10:03] LABS: BASOPHILS # (AUTO) 0.1 10^3/uL (0.0-0.1); BASOPHILS % (AUTO) 0.7 %; EOSINOPHILS # (AUTO) 0.2 10^3/uL (0.0-0.7); EOSINOPHILS % (AUTO) 1.2 %; HCT - HEMATOCRIT 40.2 % (42.0-52.0); HGB - HEMOGLOBIN 13.8 g/dL (14.0-18.0); LYMPHOCYTES # (AUTO) 1.8 10^3/uL (1.5-3.5); MEAN CORPUSCULAR HEMOGLOBIN 31.2 pg (27.0-31.0); MEAN CORPUSCULAR HGB CONC 34.3 g/dL (32.0-36.0); MEAN PLATELET VOLUME 9.5 fL (7.4-11.4); NEUTROPHILS # (AUTO) 10.6 10^3/uL (1.5-6.6); NEUTROPHILS % (AUTO) 77.5 %; PLT - PLATELET COUNT 178 10^3/uL (130-450); RED BLOOD COUNT 4.42 10^6/uL (4.70-6.10); RED CELL DISTRIBUTION WIDTH 12.7 % (12.0-15.0); WHITE BLOOD COUNT 13.7 x10^3/uL (4.8-10.8)
[2024-10-02 10:14] LABS: CALCIUM 8.4 mg/dL (8.5-10.3); CREATININE 0.8 mg/dL (0.6-1.3); POTASSIUM 3.1 mmol/L (3.5-4.5)
[2024-10-02] MEDS: DIATR MEGLU/DIATRIZOATE SODIUM 120 ML BOTTLE PO ONE (10:48)
--- NOTE | 2024-10-02 11:26 | PROVIDER PROGRESS NOTE ---
Subjective General Admit Date: 09/29/24 Other Other Information/Narrative: HD4, admitted for partial SBO. Since admission, his NGT output has fluctuated - 1100 --> 45- --> 2700 (though ~500cc in via flush and PO meds); yesterday became blood tinged and IV protonix started (hgb stable). His WBC has also fluctuated 15 --> 11 --> 13 today. His symptoms have likewise fluctuated, and are again worse this AM - both pain and nausea. All markers seem to correlate. He has a history of recurrent SBOs, has had an open DRU ~8 yrs ago that was complicated by a dehiscence and takeback for abd wall repair with mesh - that was the worst episodes. Other episodes have resolved within 24hrs, typically without NGT. This is the 2nd worst episode. He is a chronic pain / narcotic patient for LBP (also with a spinal stimulator) but is compliant, uses miralax daily, and at baseline has a daily BM. Review of his admission CT (09/28/24) shows dilated/congested and fecalized jejunum in the left hemiabdomen, and very decompressed ileum on the right hemidiaphragm, with appearance of small bowel being up against the anterior abdominal wall as it passes midline from left to right, presumably there are adhesions to the ventral mesh. 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 Review of Systems Status of ROS: 10 or more systems reviewed and unremarkable except as noted in history and below Exam Constitutional normal general appearance and no apparent distress HENMT normocephalic NGT in place, mildly blood tinged, clamped for PO med administration Respiratory normal respiratory effort Cardiovascular normal heart rate noted Gastrointestinal soft, mildly distended (my first exam), remarkably nontender overall in 4 quadrants, with minimal ttp right at umbilicus Extremities normal to inspection Psychiatry mental status grossly normal and oriented x3 Skin skin color normal ABX Reporting Has patient been on IV antibiotics over the past 48 hours?: No Impression/Plan Problem List (1) SBO (small bowel obstruction): Plan: 74yoM admitted for recurrent SBO, HD4. Suspect he has an underlying pSBO related to adhesions to his abdominal wall mesh, given the jejunal fecalization seen on his admission CT scan. He does maintain a baseline of daily BM with daily miralax use despite his chronic narcotic requirement. Concerned that his NGT output and WBC both increased again today, along with worsened pain and nausea, though he is HD normal and afebrile. - agree with gastrograffin challenge today - recommend DC all PO meds and using IV alternatives while NGT in place - continue protonix (40mg BID) - recommend adding lovenox or heparin dvt ppx If he fails gastrograffin challenge after 3-4d NGT decompression, surgical intervention would be indicated. If he passes gastrograffin challenge but WBC and pain continue to rise, would need to consider surgical intervention regardless, as I would be concerned for compromised bowel. If he passes gastrograffin challenge and also clinically resolved, he may consider further consultation for elective surgical intervention to address the chronic partial SBO. *Patient indicated to me today that "if I need to have surgery, I do not want to have it at [facility], no offense." I responded with the recommendation that we obtain the gastrograffin study results, discuss them, and take his care plan one step at a time. He agreed to this. Donna Schultz DO, FACS General Surgeon, [facility]
--- NOTE | 2024-10-02 16:23 | XRAY Report ---
PROCEDURE: XR SBFT Challenge Panel INDICATIONS: SBO follow through study COMPARISON: CT abdomen pelvis 09/28/2024 CONTRAST: 120 cc of by mouth Gastrografin. FLUOROSCOPY TIME: None FINDINGS: Gastrografin was administered via nasogastric tube. Immediate film demonstrates opacification of the decompressed stomach, duodenum, and proximal jejunal loops which are nondilated. 15 minute film demonstrates progression of Gastrografin through the left-sided small bowel loops whic h demonstrate mild prominence. At 1 hour, a film was attempted, however the patient was having continuous bowel movements. 2 hour and 25 minute film was obtained demonstrating opacification of bowel loops of small bowel, pro ximal few appear dilated and the distal portion is nondilated. There is opacification throughout the entire colon as well. IMPRESSION: No evidence of obstruction. Reviewed by: Ángela Porter MD on 10/02/2024 4:21 PM PST Approved by: Ángela Porter MD on 10/02/2024 4:21 PM PST Station ID: [id number]
[2024-10-02] MEDS: PANTOPRAZOLE 40 MG VIAL IVP SCH (20:12)
[2024-10-02] MEDS ORDERED: PANTOPRAZOLE 40 MG in SODIUM CHLORIDE 0.9% 100ML 100 ML IV SCH (21:00)
[2024-10-02] MEDS: FLUTICASONE NASAL SPRAY NAS PRN (23:07)
[2024-10-03 08:02] VITALS: BP 155/69; TEMP 98.6; O2SAT 96
--- NOTE | 2024-10-03 08:19 | PROVIDER PROGRESS NOTE ---
Subjective General Admit Date: 09/29/24 Other Other Information/Narrative: Gastrograffin passed into the rectum within 10hrs yesterday. Had large volume stool output, NGT removed, then given regular diet. Tolerated low-residue foods with caution. Pain at a 1, consistent with baseline, would like to go home. Zofran prn x3. WBC stable today at 13. HDN/AF. Review of Systems Status of ROS: 10 or more systems reviewed and unremarkable except as noted in history and below Exam Constitutional normal general appearance and no apparent distress HENMT normocephalic Respiratory normal respiratory effort Cardiovascular normal heart rate noted Gastrointestinal soft, less distended, nontender Extremities normal to inspection Psychiatry mental status grossly normal and oriented x3 Skin skin color normal ABX Reporting Has patient been on IV antibiotics over the past 48 hours?: No Impression/Plan Problem List (1) SBO (small bowel obstruction): Plan: 74yoM admitted for recurrent SBO, HD5. Passed gastrograffin challenge yesterday with MIRNA. Discussed with him my suspicion that he has an underlying pSBO related to adhesions to his abdominal wall mesh, given the jejunal fecalization seen on his admission CT scan and frequent recurrent symptoms (he often will feel onset of pain just to the left of umbilicus, and not eat or only take clears for 24hrs at home until symptoms pass). He does maintain a baseline of daily BM with daily miralax use despite his chronic narcotic requirement. 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 Villareal to discuss with him further) 4) Elective surgical intervention for DRU (discussed that this could be done at [facility] with me, and he was interested in this option). - OK to DC home, with low residue diet - will schedule patient to see me in outpatient follow up to discuss elective surgery further, with his present. Donna Schultz DO, FACS General Surgeon, [facility]
[2024-10-03 10:06] LABS: BASOPHILS # (AUTO) 0.1 10^3/uL (0.0-0.1); BASOPHILS % (AUTO) 0.5 %; EOSINOPHILS # (AUTO) 0.2 10^3/uL (0.0-0.7); EOSINOPHILS % (AUTO) 2.4 %; HGB - HEMOGLOBIN 14.3 g/dL (14.0-18.0); LYMPHOCYTES % (AUTO) 21.8 %; MEAN CORPUSCULAR HEMOGLOBIN 31.2 pg (27.0-31.0); MEAN CORPUSCULAR HGB CONC 34.9 g/dL (32.0-36.0); MEAN CORPUSCULAR VOLUME 89.5 fL (80.0-94.0); MEAN PLATELET VOLUME 9.5 fL (7.4-11.4); MONOCYTES # (AUTO) 0.8 10^3/uL (0.0-1.0); MONOCYTES % (AUTO) 8.6 %; NEUTROPHILS # (AUTO) 6.1 10^3/uL (1.5-6.6); NEUTROPHILS % (AUTO) 66.3 %; PLT - PLATELET COUNT 187 10^3/uL (130-450); RED BLOOD COUNT 4.58 10^6/uL (4.70-6.10); RED CELL DISTRIBUTION WIDTH 12.9 % (12.0-15.0); WHITE BLOOD COUNT 9.2 x10^3/uL (4.8-10.8)
[2024-10-03 10:16] LABS: CREATININE 0.9 mg/dL (0.6-1.3); POTASSIUM 2.9 mmol/L (3.5-4.5)
[2024-10-03] MEDS: POTASSIUM CHLORIDE 20 MEQ TABLET PO ONE (10:27)
--- NOTE | 2024-10-03 11:21 | Discharge Summary ---
<Statement entered by Chino Sinclair DNP - 10/03/24 15:31> Patient was seen and examined by me with a separate encounter after being seen by ZACKERY student. I reviewed the student's documentation including patient history, physical examination, laboratory, imaging, clinical assessment and treatment plan. I have discussed the management of the patient with the student, and with the patient. There are no changes. Discharge Summary Admit Date: 09/29/24 Discharge Date: 10/03/24 Discharging Provider: Chino Sinclair Primary Care Provider: Amy Rizo Code Status: Attempt Resuscitation Discharge Facility Name: Home DIAGNOSES Admission Diagnoses: Small bowel obstruction Essential hypertension Encounter for long-term current use of medication Hyperlipidemia Discharge Diagnoses with Status of Each Condition: Small bowel obstruction: Resolved. Has had consult with dietary services regarding initiating a low-residue diet. Will follow up with surgery to discuss elective procedure that may help prevent a recurrence of another SBO. Essential hypertension: Chronic, managed by PCP Encounter for long-term current use of medication: Chronic, managed by PCP. Hyperlipidemia: Chronic, managed by PCP. HPI History of Present Illness: 74-year-old male with history of multiple abdominal surgeries including a open exploratory abdominal surgery in 2012 which dehisced and became infected with MRSA, also history of hypertension. He presents with abdominal pain for the past few days as well as nausea and now inability to pass gas. He has history of chronic back pain, and is on significant doses of opiates. CONSULTS | PROCEDURES Consultations: Dietary services Procedures: Small bowel follow-through with gastrograffin HOSPITAL COURSE Hospital Course: Patient was admitted from the ED for acute small bowel obstruction. He has a history of multiple abdominal surgeries and regular opioid use for chronic pain. He was made NPO, all oral medications were withheld, and an NG tube was placed. He was followed by the general surgical team while hospitalized. Patient was given IV fluids, a one-time dose of potassium for hypokalemia, and IV pain meds. He had a small bowel follow-through study which cleared the acute obstruction, and patient began having bowel movements. The NG tube was removed and the patient resumed a regular diet which he appeared to be tolerating well. The surgeon advised that a portion of the patient's small intestine was fecalized and there may be adhesions from prior abdominal surgery. Patient's bowel appeared to have a permanent partial obstruction. He met with surgery to discuss an elective outpatient procedure that may help prevent future obstructions, and patient will follow-up as an outpatient. ALLERGIES Allergies Allergy/AdvReac Type Severity Reaction Status Date / Time dextrose 5 % in water (From Allergy Severe Hives Verified 09/28/24 19:59 Zyvox) linezolid (From Zyvox) Allergy Severe Hives Verified 09/28/24 19:59 clindamycin Allergy Hives Verified 09/28/24 19:59 MEDICATIONS Ambulatory Orders Medication Instructions Recorded Confirmed morphine 30 mg capsule,extended 30 mg PO BID 01/14/24 09/30/24 release pellets oxycodone-acetaminophen 5 mg-325 1 tab PO TID 01/14/24 09/30/24 mg tablet muswabij-bga-clqlj acid 0.4 1 tab PO QDAY 06/30/24 09/30/24 mg-lycopene 300 mcg-lutein 250 mcg tablet (Centrum Silver) omega 7-myb-ksg-fish oil 60 mg-90 1 cap PO QDAY 06/30/24 09/30/24 mg-500 mg capsule (Fish Oil) polyethylene glycol 3350 17 gram 17 g PO QDAY 06/30/24 09/30/24 oral powder packet (Miralax) simethicone 180 mg capsule 180 mg PO BID PRN abdominal 06/30/24 09/30/24 distention amlodipine 10 mg tablet (Norvasc) 10 mg PO DAILY #100 tabs 07/02/24 09/30/24 atorvastatin 40 mg tablet 40 mg PO DAILY #100 tabs 07/02/24 09/30/24 metoprolol succinate 100 mg 100 mg PO DAILY #100 tabs 07/02/24 09/30/24 tablet,extended release 24 hr metoprolol succinate 50 mg 50 mg PO QDAY #100 tabs 07/02/24 09/30/24 tablet,extended release 24 hr cyclobenzaprine 5 mg tablet 5 mg PO DAILY PRN muscle spasm 09/30/24 09/30/24 fluticasone propionate 50 1 spray intranasal QDAY PRN 09/30/24 09/30/24 mcg/actuation nasal allergy symptoms spray,suspension triamcinolone acetonide 0.5 % 1 applic topical QDAY PRN ECZEMA 09/30/24 09/30/24 topical cream alvimopan 12 mg capsule 12 mg PO BID 30 days #60 caps 10/03/24 PHYSICAL EXAM AT DISCHARGE General Appearance: positive No acute distress Eyes Bilateral: positive Normal inspection ENT: positive ENT inspection nml Neck: positive Nml inspection Respiratory: positive Chest non-tender and No respiratory distress Cardiovascular: positive Regular rate & rhythm Abdomen: positive Non-tender Extremities: positive Non-tender and No pedal edema Neurologic/Psychiatric: positive Oriented x3 LABS 10/03/24 09:55 10/03/24 09:55 FOLLOW UP Follow Up: With general surgery and with his PCP TIME SPENT Time Spent in Discharge (Minutes): 35 Discharge Plan Discharge Patient Disposition: Home, Self Care Condition: Stable Medically Cleared Date:: 10/03/24 Prescriptions: New alvimopan 12 mg capsule 12 mg PO BID 30 Days Qty: 60 0RF Continued oxycodone-acetaminophen 1 BOTTLE tablet 1 tab PO TID morphine 30 MG capsule,extend.release pellets 30 mg PO BID triamcinolone acetonide 0.5 % cream 1 applic topical QDAY PRN (Reason: ECZEMA) Rx Instructions: Apply to lower extremities for up to 2 weeks at a time. fluticasone propionate 50 mcg/actuation spray,suspension 1 spray intranasal QDAY PRN (Reason: allergy symptoms) Rx Instructions: administer into each nostril cyclobenzaprine 5 mg tablet 5 mg PO DAILY PRN (Reason: muscle spasm) polyethylene glycol 3350 [Miralax] 17 gram powder in packet 17 g PO QDAY Centrum Silver 0.4 mg-300 mcg- 250 mcg tablet 1 tab PO QDAY simethicone 180 mg capsule 180 mg PO BID PRN (Reason: abdominal distention) omega 2-wzw-ljy-fish oil [Fish Oil] 60-90-500 mg capsule 1 cap PO QDAY amlodipine [Norvasc] 10 mg tablet 10 mg PO DAILY Qty: 100 3RF atorvastatin 40 mg tablet 40 mg PO DAILY Qty: 100 3RF metoprolol succinate 100 mg tablet extended release 24 hr 100 mg PO DAILY Qty: 100 3RF Rx Instructions: Along with a 50mg tablet metoprolol succinate 50 mg tablet extended release 24 hr 50 mg PO QDAY Qty: 100 3RF Rx Instructions: Along with a 100mg tablet Activity Restrictions: No Restrictions Diet: Regular Health Concerns: You were admitted for a small bowel obstruction, which is a blockage of your intestine. Obstructions can be caused by the medications you take for your chronic pain or as a result of internal scarring from your past abdominal surgeries. While you were here, we kept you from eating or drinking to allow your bowel to rest and to prevent any further obstruction. You had a tube placed through your nose and down into your stomach which we used to suction out fluid and remove excess gas from your stomach. You had a procedure called a small bowel follow-through during which a dye was placed into your digestive tract to visualize the extent of the blockage. The dye has a mild laxative effect, and following this procedure, you had a bowel movement. We were able to remove the tube from your nose and allow you to begin eating and drinking normally. You met with general surgery to discuss an elective outpatient procedure that is described in their note below. Please follow-up with them and with your PCP after you get home from the hospital. Your PCP may have ideas as to how to reduce the amount of opioid pain medication you are taking. You also met with a crop ranch hand to discuss transitioning to a low-residue diet, which may help to prevent future bowel obstructions. Please follow their instructions. Plan of Treatment: DISCHARGE INSTRUCTIONS from Dr. Schultz (General Surgery) * Follow a "low-residue" diet at home. Pay attention to abdominal symptoms, and if you feel the onset of the pain that preceeds your bowel obstructions, try doing a clear liquid diet for 24hrs, or even taking nothing by mouth, until the pain passes and you are able to have bowel movement. If this is not successful within 24-36 hours, recommend you come to the emergency room. * Discuss potential ways of lowering your narcotic dosing with your pain management doctor * Consider using the medication "Entereg", which blocks the impact of narcotics on the bowel (this may be expensive) * Follow up with me in the General Surgery Clinic ([phone]) to discuss options for elective surgical treatment - to break up the adhesions (scar tissue) between the bowel and the mesh, which are likely causing these bowel obstructions. My clinic should call you to schedule the follow up, but feel free to call yourself if you don't hear from them soon. Print Language: Slovak Patient Instructions: Diet Low Residue Stand Alone Forms: PCP List Follow-up Care: Amy Rizo ARNP [Primary Care Provider] - Tulk,Donna B, DO [Provider Admit Priv/Credential] -
== END 2024-10-03 14:15 | disposition home or self-care (01) | DRG 390 ==
LOC: ED 19:20 → ICU 09-29 11:14 → MS3 09-30 14:48
PROVIDERS: ADMIT Internal Medicine; ATTEND Internal Medicine
DX: D72.829 Elevated white blood cell count, unspecified; K56.609 Unspecified intestinal obstruction, unspecified as to partial versus complete obstruction; I10 Essential (primary) hypertension; T18.3XXA Foreign body in small intestine, initial encounter; Z79.899 Other long term (current) drug therapy; E87.6 Hypokalemia; E78.2 Mixed hyperlipidemia; G89.29 Other chronic pain; K56.600 Partial intestinal obstruction, unspecified as to cause; Z86.14 Personal history of Methicillin resistant Staphylococcus aureus infection; M54.50 Low back pain, unspecified; Z79.891 Long term (current) use of opiate analgesic